=== PATIENT | female | born 1975 | race Caucasian/White ===

== ENCOUNTER 2017-03-07 20:29 | Emergency (ER) | payer BC, OTHER ==
[~2017-03-07] VITALS: Ht 160 cm; Wt 75.0 kg
[2017-03-07] MEDS ORDERED: NS 1,000 ML IV ONE (21:00)
[2017-03-07] MEDS ORDERED: ONDANSETRON 4MG/2ML VIAL (J2405) IV ONE (21:00)
[2017-03-07] MEDS: MORPHINE 4 MG/ML 1ML SYRINGE IV PRN ×2 (21:17→22:53)
[2017-03-07 21:21] LABS: BASO % 0.6 % (0.0-1.0); EOS # 0.1 K/mm3 (0.0-0.50); EOS % 0.8 % (0.0-3.0); LARGE UNSTAINED CELL # 0.1 K/mm3 (0.0-0.4); LARGE UNSTAINED CELL % 1.4 % (0.0-4.0); LYMPH % 21.5 % (24.0-44.0); MEAN CORPUSCULAR HEMOGLOBIN 29.1 pg (27.0-33.0); MEAN CORPUSCULAR HGB CONC 33.5 g/dl (32.0-36.5); MEAN CORPUSCULAR VOLUME 86.9 fl (80.0-96.0); MONO # 0.5 K/mm3 (0.0-0.8); MONO % 5.3 % (0.0-5.0); NEUTROPHILS # 6.3 K/mm3 (1.8-7.7); NEUTROPHILS % 70.4 % (36.0-66.0); PLATELET COUNT, AUTOMATED 242 k/mm3 (150-450); RED CELL DISTRIBUTION WIDTH 12.2 % (11.5-14.5); WHITE BLOOD COUNT 8.9 K/mm3 (4.0-10.0)
[2017-03-07 21:48] LABS: ALBUMIN 4.2 GM/DL (3.2-5.2); ALBUMIN/GLOBULIN RATIO 1.05 (1.00-1.93); ALKALINE PHOSPHATASE 94 U/L (45-117); ALT/SGPT 34 U/L (12-78); ANION GAP 10 MEQ/L (8-16); AST/SGOT 16 U/L (15-37); BILIRUBIN,DIRECT < 0.1 MG/DL (0.0-0.2); BILIRUBIN,TOTAL 0.4 MG/DL (0.2-1.0); BLOOD UREA NITROGEN 23 MG/DL (7-18); CALCIUM LEVEL 9.1 MG/DL (8.5-10.1); CARBON DIOXIDE LEVEL 26 MEQ/L (21-32); CHLORIDE LEVEL 106 MEQ/L (98-107); CREATININE FOR GFR 0.75 MG/DL (0.55-1.02); GLOMERULAR FILTRATION RATE > 60.0 (>58); GLUCOSE, FASTING 79 MG/DL (70-105); POTASSIUM SERUM 3.8 MEQ/L (3.5-5.1); SODIUM LEVEL 142 MEQ/L (136-145); TOTAL PROTEIN 8.2 GM/DL (6.4-8.2)
[2017-03-08] MEDS ORDERED: ISOVUE-370 76% 100ML VIAL (Q9967) As Ordered ONE (00:28)
--- NOTE | 2017-03-08 01:30 | REPUSA ---
CLINICAL HISTORY: Left flank pain. TECHNIQUE: Multiple axial, sagittal and coronal CT images were obtained through the abdomen and pelvi s after administration of intravenous contrast material. COMMENTS: Mild diffuse thickening of the wall of the bladder. Mild hepatomegaly with fat infiltration. There is no intra or extrahepatic biliary ductal dilatation. The spleen is normal. The gallbladder is within normal limits. The pancreas is of normal contour and attenuation characteristics. There is no evidence of adrenal mass. Both kidneys demonstrate prompt and equal nephrograms. The kidneys are normal in size, shape and conf iguration. There is no evidence of renal or ureteral mass. No renal or ureteral calculi are identifie d. There is no hydroureter or hydronephrosis. No evidence for appendicitis. There is no bowel wall thickening. No evidence for small or large chelsie l obstruction. There is no evidence of abdominal ascites or lymphadenopathy. There is no evidence of intrinsic or extrinsic bladder mass. There is no pelvic ascites or lymphadeno liv[place]. Images of the lung bases show no evidence of pleural or parenchymal mass. There are no pleural effusi ons. The bony structures are free of lytic or blastic lesions. Multilevel degenerative changes are seen in volving the thoracolumbar spine. Scattered calcifications are seen involving the aorta and major bran ches compatible with atherosclerosis. IMPRESSION: Mild diffuse thickening of the wall of the bladder. Mild hepatomegaly with fatty liver infiltration. Prior hysterectomy. Thank you for your kind referral of this patient.
[2017-03-08] MEDS ORDERED: ONDANSETRON 4MG/2ML VIAL (J2405) IV ONE (02:00)
[2017-03-08 02:01] VITALS: BP 97/49
[2017-03-08] MEDS ORDERED: ZOFR4TAB3 PO (02:02)
== END 2017-03-08 02:10 | disposition home or self-care (01) ==
LOC: M ED 20:29
DX: E86.0 Dehydration (principal)
CPT/HCPCS: 74177; 80048; 80076; 81001; 83690; 85025; 87040; 87086; 96361; 96374; 96375; 96376; 99284; J2405; Q9967

== ENCOUNTER 2017-05-24 16:19 | Emergency (ER) | payer BC ==
[~2017-05-24] VITALS: Ht 160 cm; Wt 75.0 kg
[~2017-05-24 16:19] MED LIST: ZOFR4TAB3 PO
[2017-05-24] MEDS ORDERED: ACETAMINOPHEN 325 MG TAB PO ONE (18:30)
[2017-05-24] MEDS ORDERED: IBUPROFEN 600 MG TAB PO ONE (18:30)
[2017-05-24] MEDS ORDERED: ZITHTAB PO (19:15)
[2017-05-24 19:36] VITALS: BP 120/62
--- NOTE | 2017-05-24 19:39 | REP ---
REASON: Cough and pyrexia. COMPARISON: 03/12/2016 FINDINGS: The superior mediastinal structures are midline. The cardiac silhouette is unremarkable in size, shape, and position. The diaphragmatic surfaces of the lungs are regular, and the costophrenic angles are clear. The pulmonary angulo are clear. The imaged osseous structures are intact. IMPRESSION: There is no acute cardiopulmonary disease. Signed by Simone Dutta DO 05/24/2017 08:06 P
== END 2017-05-24 19:37 | disposition home or self-care (01) ==
LOC: M ED 16:19
DX: J06.9 Acute upper respiratory infection, unspecified (principal)

== ENCOUNTER 2017-10-07 10:34 | Emergency (ER) | payer BC ==
[2017-10-07] MEDS: PANTOPRAZOLE 40MG INJ (PROTONIX) (C9113) IV (12:01)
[2017-10-07] MEDS: METOCLOPRAMIDE INJ 10MG/2ML VIAL (J2765) IV (12:01)
[2017-10-07] MEDS: NS 1,000 ML IV (12:02)
[2017-10-07 12:14] LABS: BASO % 0.1 % (0.0-1.0); EOS % 0.1 % (0.0-3.0); HEMATOCRIT 46.7 % (36.0-47.0); HEMOGLOBIN 15.4 g/dl (12.0-15.5); IMMATURE GRANULOCYTE % 0.1 % (0-3.0); LYMPH # 0.8 10^3/uL (1.5-4.5); LYMPH % 9.6 % (24.0-44.0); MEAN CORPUSCULAR HEMOGLOBIN 28.7 pg (27.0-33.0); MONO # 0.6 10^3/uL (0.0-0.8); MONO % 7.5 % (0.0-5.0); NEUTROPHILS # 6.8 10^3/uL (1.8-7.7); NEUTROPHILS % 82.6 % (36.0-66.0); PLATELET COUNT, AUTOMATED 222 10^3/uL (150-450); RED BLOOD COUNT 5.37 10^6/uL (4.00-5.40); RED CELL DISTRIBUTION WIDTH 12.4 % (11.5-14.5); WHITE BLOOD COUNT 8.2 10^3/uL (4.0-10.0)
[2017-10-07 12:28] LABS: KETONE, URINE AUTO RFX NEGATIVE (NEGATIVE); LEUKOCYTE ESTERASE UR AUTO RFX NEGATIVE (NEGATIVE); MUCUS, URINE RFX SMALL (NEGATIVE); NITRITE, URINE AUTO RFX NEGATIVE (NEGATIVE); RBC, URINE AUTO RFX 2 /HPF (0-3); SPECIFIC GRAVITY UR AUTO RFX 1.027 (1.002-1.035); SQUAM EPITHELIAL CELL UR AURFX 3 /HPF (0-6); WBC, URINE AUTO RFX 1 /HPF (0-3)
[2017-10-07 12:33] LABS: CONTROL LINE HCG INT CTR LINE PRESENT; HCG, SERUM QUALITATIVE NEGATIVE (NEGATIVE)
[2017-10-07] MEDS: MORPHINE 4 MG/ML 1ML VIAL/SYRINGE (J2270) IV (12:36)
[2017-10-07] MEDS ORDERED: ISOVUE-370 76% 100ML VIAL (Q9967) As Ordered (12:37)
[2017-10-07 12:40] LABS: ALBUMIN 3.9 GM/DL (3.2-5.2); ALBUMIN/GLOBULIN RATIO 0.95 (1.00-1.93); ALKALINE PHOSPHATASE 99 U/L (45-117); ALT/SGPT 32 U/L (12-78); AMYLASE 60 U/L (25-115); ANION GAP 4 MEQ/L (8-16); AST/SGOT 20 U/L (7-37); BILIRUBIN,DIRECT < 0.1 MG/DL (0.0-0.2); BILIRUBIN,TOTAL 0.3 MG/DL (0.2-1.0); BLOOD UREA NITROGEN 14 MG/DL (7-18); CALCIUM LEVEL 8.9 MG/DL (8.5-10.1); CARBON DIOXIDE LEVEL 28 MEQ/L (21-32); CHLORIDE LEVEL 107 MEQ/L (98-107); CREATININE FOR GFR 0.79 MG/DL (0.55-1.30); GLOMERULAR FILTRATION RATE > 60.0 (>58); GLUCOSE, FASTING 106 MG/DL (70-100); LIPASE 141 U/L (73-393); POTASSIUM SERUM 4.1 MEQ/L (3.5-5.1); SODIUM LEVEL 139 MEQ/L (136-145)
[2017-10-07] MEDS: SUCRALFATE SUSP 1GM/10ML UD PO (13:30)
== END 2017-10-07 13:33 | disposition home or self-care (01) ==
LOC: M ED 10:34
DX: K29.70 Gastritis, unspecified, without bleeding (principal); K21.9 Gastro-esophageal reflux disease without esophagitis; Z87.42 Personal history of other diseases of the female genital tract; Z86.69 Personal history of other diseases of the nervous system and sense organs; Z88.8 Allergy status to other drugs, medicaments and biological substances
CPT/HCPCS: C9113

== ENCOUNTER → 2017-11-13 | Outpatient (CLI) | payer BC | LOC: M RAD 09:33 | DX: S96.011A Strain of muscle and tendon of long flexor muscle of toe at ankle and foot level, right foot, initial encounter (principal); M79.89 Other specified soft tissue disorders; X58.XXXA Exposure to other specified factors, initial encounter; Y92.9 Unspecified place or not applicable | CPT/HCPCS: 73610 ==

== ENCOUNTER 2018-05-02 19:01 | Emergency (ER) | payer BC ==
[2018-05-02 19:30] LABS: KETONE, URINE AUTO RFX NEGATIVE (NEGATIVE); LEUKOCYTE ESTERASE UR AUTO RFX NEGATIVE (NEGATIVE); NITRITE, URINE AUTO RFX NEGATIVE (NEGATIVE); RBC, URINE AUTO RFX 0 /HPF (0-3); SPECIFIC GRAVITY UR AUTO RFX 1.004 (1.002-1.035); SQUAM EPITHELIAL CELL UR AURFX 0 /HPF (0-6); WBC, URINE AUTO RFX 0 /HPF (0-3)
[2018-05-02] MEDS: GI COCKTAIL 50ML BTL(HYOSCYAMINE/MAALOX/LIDOCAINE VISCOUS)(1:3:1) PO (21:00)
[2018-05-02] MEDS: NS 1,000 ML IV (21:17)
[2018-05-02] MEDS: ONDANSETRON 4MG/2ML VIAL (J2405) IV (21:17)
[2018-05-02] MEDS: KETOROLAC 30 MG/ML VIAL (J1885) IV (21:17)
[2018-05-02 21:29] LABS: HEMATOCRIT 43.6 % (36.0-47.0); HEMOGLOBIN 14.5 g/dl (12.0-15.5); MEAN CORPUSCULAR HGB CONC 33.3 g/dl (32.0-36.5); MEAN CORPUSCULAR VOLUME 87.2 fl (80.0-96.0); PLATELET COUNT, AUTOMATED 237 10^3/uL (150-450); RED CELL DISTRIBUTION WIDTH 12.4 % (11.5-14.5); WHITE BLOOD COUNT 9.1 10^3/uL (4.0-10.0)
[2018-05-02 21:55] LABS: ALBUMIN 4.2 GM/DL (3.2-5.2); ALBUMIN/GLOBULIN RATIO 1.05 (1.00-1.93); ALKALINE PHOSPHATASE 116 U/L (45-117); ALT/SGPT 43 U/L (12-78); ANION GAP 8 MEQ/L (8-16); AST/SGOT 24 U/L (7-37); BILIRUBIN,TOTAL 0.2 MG/DL (0.2-1.0); BLOOD UREA NITROGEN 11 MG/DL (7-18); CALCIUM LEVEL 9.2 MG/DL (8.5-10.1); CARBON DIOXIDE LEVEL 29 MEQ/L (21-32); CHLORIDE LEVEL 103 MEQ/L (98-107); CPK CREATINE PHOSPHOKINASE 171 U/L (26-192); CREATININE FOR GFR 0.74 MG/DL (0.55-1.30); GLOMERULAR FILTRATION RATE > 60.0 (>58); GLUCOSE, FASTING 85 MG/DL (70-100); LIPASE 197 U/L (73-393); MB/CK RELATIVE INDEX 1.11 (< OR =4); POTASSIUM SERUM 3.3 MEQ/L (3.5-5.1); SODIUM LEVEL 140 MEQ/L (136-145); TOTAL PROTEIN 8.2 GM/DL (6.4-8.2); TROPONIN I < 0.02 NG/ML (< 0.10)
[2018-05-02] MEDS: ACETAMINOPHEN 325 MG TAB PO (22:52)
[2018-05-02] MEDS: traMADol 50 MG TAB PO (22:52)
[2018-05-03] MEDS: MORPHINE 4 MG/ML 1ML VIAL/SYRINGE (J2270) IV (00:03)
[2018-05-03] MEDS: ONDANSETRON 4MG/2ML VIAL (J2405) IV (00:40)
[2018-05-03] MEDS ORDERED: ISOVUE-370 76% 100ML VIAL (Q9967) As Ordered (00:41)
== END 2018-05-03 01:56 | disposition home or self-care (01) ==
LOC: M ED 05-03 01:56
DX: K29.70 Gastritis, unspecified, without bleeding (principal); K21.0 Gastro-esophageal reflux disease with esophagitis; I45.19 Other right bundle-branch block; K76.0 Fatty (change of) liver, not elsewhere classified; R51 Headache; J45.909 Unspecified asthma, uncomplicated; Z82.49 Family history of ischemic heart disease and other diseases of the circulatory system; Z88.8 Allergy status to other drugs, medicaments and biological substances
CPT/HCPCS: J2270

== ENCOUNTER 2018-06-27 07:01 | Emergency (ER) | payer BC ==
[~2018-06-27] VITALS: Ht 160 cm; Wt 80.0 kg
[~2018-06-27 07:01] MED LIST changes: +CARA1TAB6 PO; +LIDO1SOL7 PO; +PROT1TAB2 PO; +ZITHTAB PO; +ZOFR4TAB14 PO; -ZOFR4TAB3 PO
[2018-06-27] MEDS ORDERED: DICY10CA13 PO (07:08)
[2018-06-27] MEDS ORDERED: MORPHINE 4 MG/ML 1ML VIAL/SYRINGE (J2270) IV ONE (07:30)
[2018-06-27] MEDS ORDERED: NS 1,000 ML IV ONE (07:30)
[2018-06-27] MEDS ORDERED: ONDANSETRON 4MG/2ML VIAL (J2405) IV ONE (07:30)
[2018-06-27 08:03] LABS: BASO % 0.5 % (0.0-1.0); EOS # 0.2 10^3/uL (0.0-0.50); EOS % 1.9 % (0.0-3.0); HEMATOCRIT 42.7 % (36.0-47.0); HEMOGLOBIN 14.2 g/dl (12.0-15.5); LYMPH % 24.8 % (24.0-44.0); MEAN CORPUSCULAR HEMOGLOBIN 29.1 pg (27.0-33.0); MEAN CORPUSCULAR HGB CONC 33.3 g/dl (32.0-36.5); MEAN CORPUSCULAR VOLUME 87.5 fl (80.0-96.0); MONO # 0.8 10^3/uL (0.0-0.8); MONO % 10.6 % (0.0-5.0); NEUTROPHILS # 4.9 10^3/uL (1.8-7.7); NEUTROPHILS % 62.1 % (36.0-66.0); PLATELET COUNT, AUTOMATED 228 10^3/uL (150-450); RED BLOOD COUNT 4.88 10^6/uL (4.00-5.40); WHITE BLOOD COUNT 7.9 10^3/uL (4.0-10.0)
[2018-06-27 09:11] LABS: ALBUMIN 3.8 GM/DL (3.2-5.2); ALT/SGPT 44 U/L (12-78); AMYLASE 60 U/L (25-115); BILIRUBIN,DIRECT < 0.1 MG/DL (0.0-0.2); BILIRUBIN,TOTAL 0.3 MG/DL (0.2-1.0); BLOOD UREA NITROGEN 19 MG/DL (7-18); CARBON DIOXIDE LEVEL 29 MEQ/L (21-32); CHLORIDE LEVEL 105 MEQ/L (98-107); CREATININE FOR GFR 0.77 MG/DL (0.55-1.30); GLOMERULAR FILTRATION RATE > 60.0 (>58); GLUCOSE, FASTING 112 MG/DL (70-100); LIPASE 194 U/L (73-393); POTASSIUM SERUM 3.9 MEQ/L (3.5-5.1); SODIUM LEVEL 139 MEQ/L (136-145); TOTAL PROTEIN 7.5 GM/DL (6.4-8.2)
[2018-06-27] MEDS ORDERED: ISOVUE-370 76% 100ML VIAL (Q9967) As Ordered ONE (09:42)
--- NOTE | 2018-06-27 10:12 | REP ---
CT ABDOMEN AND PELVIS WITH IV BUT WITHOUT ORAL CONTRAST: HISTORY: Nausea. Sudden onset. Abdomen pain. COMPARISON STUDY: May 03, 2018. CT CONTRAST DOSE: 100 mL of intravenous Isovue [address] FINDINGS: Preliminary digital cyber security instructor radiograph demonstrates an unremarkable bowel gas pattern. Lung bases are clear. The liver shows mild fatty infiltration as before. No overall enlargement is seen. No focal liver lesion. No adrenal lesion is observed. No pancreatic abnormality is seen to. The gallbladder is unremarkable. The kidneys enhance symmetrically and are morphologically intact. Spleen is homogeneous. Normal in size. Small and large intestinal bowel loops are normal in the abdomen and pelvis. The appendix is surgically absent. Urinary bladder is intact. The patient is status post hysterectomy. No adnexal pathology is seen. No abdominal wall defect is observed. Bone window settings show no bony destructive lesion. IMPRESSION: Fatty infiltration of the liver as noted previously. Status post hysterectomy and appendectomy. No acute intra-abdominal or pelvic abnormality. Electronically Signed by Alex Zapata MD 06/27/2018 10:59 A
[2018-06-27] MEDS ORDERED: ZOFR4TAB14 PO (10:32)
[2018-06-27] MEDS ORDERED: NORCOTAB PO (10:32)
[2018-06-27 10:34] VITALS: BP 99/55
[2018-07-14] MEDS ORDERED: IMIT50TA PO (08:24)
[2018-07-14] MEDS ORDERED: VENTAER INH (08:24)
== END 2018-06-27 10:46 | disposition home or self-care (01) ==
LOC: M ED 07:01
DX: R10.12 Left upper quadrant pain (principal); K21.9 Gastro-esophageal reflux disease without esophagitis; J45.909 Unspecified asthma, uncomplicated; F41.9 Anxiety disorder, unspecified
CPT/HCPCS: 36415; 74177; 80048; 80076; 81001; 82150; 83690; 85025; 96361; 96374; 96375; 99284; J2270; J2405; Q9967

== ENCOUNTER 2018-07-28 09:04 | Day surgery (SDC) | payer BC ==
[~2018-07-28] VITALS: Ht 160 cm; Wt 79.4 kg
[~2018-07-28 09:04] MED LIST changes: +DICY10CA13 PO; +IMIT50TA PO; +NORCOTAB PO; +NS 1,000 ML IV ONE; +VENTAER INH
--- NOTE | 2018-07-28 10:11 | ROOR ---
Patient Name: Jodie Octavio Procedure Date: 07/28/2018 9:56 AM Date of : 1975 Age: 43 Room: [facility] Gender: Female Note Status: Finalized Procedure: Upper GI endoscopy Indications: Abdominal pain in the right upper quadrant, Abdominal pain in the left upper quadrant Providers: Jeet CASTILLO MD Referring MD: Temitope Ontiveros NP Requesting Provider: Medicines: Monitored Anesthesia Care Complications: No immediate complications. Procedure: Pre-Anesthesia Assessment: - The heart rate, respiratory rate, oxygen saturations, blood pressure, adequacy of pulmonary ventilation, and response to care were monitored throughout the procedure. The Endoscope was introduced through the mouth, and advanced to the second part of duodenum. The upper GI endoscopy was accomplished without difficulty. The patient tolerated the procedure well. Findings: The esophagus was normal. The stomach was normal. The examined duodenum was normal. Impression: - Normal esophagus. - Normal stomach. - Normal examined duodenum. - No specimens collected. Recommendation: - Continue present medications. Jeet Castillo MD Jeet CASTILLO MD 07/28/2018 10:11:12 AM This report has been signed electronically. Number of Addenda: 0 Note Initiated On: 07/28/2018 9:56 AM Estimated Blood Loss: Estimated blood loss: none.
--- NOTE | 2018-07-28 10:24 | ROOR ---
Patient Name: Jodie Cunningham Procedure Date: 07/28/2018 9:57 AM Date of : 1975 Age: 43 Room: [facility] Gender: Female Note Status: Finalized Procedure: Colonoscopy Indications: Abdominal pain, Constipation Providers: Jeet ALEXIS MD Referring MD: Temitope Ontiveros NP Requesting Provider: Medicines: Monitored Anesthesia Care Complications: No immediate complications. Procedure: Pre-Anesthesia Assessment: - The heart rate, respiratory rate, oxygen saturations, blood pressure, adequacy of pulmonary ventilation, and response to care were monitored throughout the procedure. The Colonoscope was introduced through the anus and advanced to 10 cm into the ileum. The colonoscopy was performed without difficulty. The patient tolerated the procedure well. The quality of the bowel preparation was adequate. Findings: The perianal and digital rectal examinations were normal. Internal hemorrhoids were found during retroflexion. The hemorrhoids were medium-sized. The entire examined colon appeared normal on direct and retroflexion views. The terminal ileum appeared normal. Retroflexion in the right colon was performed. Impression: - Internal hemorrhoids. - The entire colon is normal on direct and retroflexion views. - The examined portion of the ileum was normal. - No specimens collected. Recommendation: - Continue present medications. Jeet Alexis MD Jeet ALEXIS MD 07/28/2018 10:24:00 AM This report has been signed electronically. Number of Addenda: 0 Note Initiated On: 07/28/2018 9:57 AM Estimated Blood Loss: Estimated blood loss: none.
[2018-07-28 11:07] VITALS: BP 119/81
== END 2018-07-28 11:07 | disposition home or self-care (01) ==
LOC: M OPP 09:04
PROVIDERS: ATTEND Internal Medicine Gastroenterology
DX: K64.8 Other hemorrhoids (principal); R10.11 Right upper quadrant pain; K59.00 Constipation, unspecified; R10.12 Left upper quadrant pain

== ENCOUNTER 2018-08-08 13:45 | Inpatient (IN) | payer BC ==
[~2018-08-08] VITALS: Ht 160 cm; Wt 80.9 kg
[~2018-08-08 13:45] MED LIST changes: -NS 1,000 ML IV ONE
[2018-08-08 14:55] LABS: ALBUMIN 4.3 GM/DL (3.2-5.2); ALT/SGPT 46 U/L (12-78); BILIRUBIN,DIRECT 0.1 MG/DL (0.0-0.2); BILIRUBIN,TOTAL 0.4 MG/DL (0.2-1.0); BLOOD UREA NITROGEN 12 MG/DL (7-18); CARBON DIOXIDE LEVEL 27 MEQ/L (21-32); CHLORIDE LEVEL 107 MEQ/L (98-107); CREATININE FOR GFR 0.77 MG/DL (0.55-1.30); GLOMERULAR FILTRATION RATE > 60.0 (>58); GLUCOSE, FASTING 85 MG/DL (70-100); LIPASE 112 U/L (73-393); POTASSIUM SERUM 3.9 MEQ/L (3.5-5.1); SODIUM LEVEL 141 MEQ/L (136-145); TOTAL PROTEIN 7.4 GM/DL (6.4-8.2)
[2018-08-08] MEDS ORDERED: NS 1,000 ML IV ONE (16:00)
[2018-08-08] MEDS ORDERED: MORPHINE 4 MG/ML 1ML VIAL/SYRINGE (J2270) IV ONE (16:00)
[2018-08-08] MEDS ORDERED: ONDANSETRON 4MG/2ML VIAL (J2405) IV ONE (16:00)
[2018-08-08 16:36] LABS: BASO % 0.4 % (0.0-1.0); EOS # 0.1 10^3/uL (0.0-0.50); EOS % 1.6 % (0.0-3.0); HEMATOCRIT 43.3 % (36.0-47.0); HEMOGLOBIN 14.2 g/dl (12.0-15.5); LYMPH # 2.2 10^3/uL (1.5-4.5); MEAN CORPUSCULAR HEMOGLOBIN 28.7 pg (27.0-33.0); MEAN CORPUSCULAR HGB CONC 32.8 g/dl (32.0-36.5); MEAN CORPUSCULAR VOLUME 87.7 fl (80.0-96.0); MONO # 0.7 10^3/uL (0.0-0.8); MONO % 9.9 % (0.0-5.0); NEUTROPHILS % 56.8 % (36.0-66.0); PLATELET COUNT, AUTOMATED 218 10^3/uL (150-450); RED BLOOD COUNT 4.94 10^6/uL (4.00-5.40); WHITE BLOOD COUNT 7.1 10^3/uL (4.0-10.0)
[2018-08-08 16:56] LABS: ALT/SGPT 44 U/L (12-78); BILIRUBIN,TOTAL 0.4 MG/DL (0.2-1.0); BLOOD UREA NITROGEN 11 MG/DL (7-18); CALCIUM LEVEL 8.7 MG/DL (8.5-10.1); CARBON DIOXIDE LEVEL 26 MEQ/L (21-32); CHLORIDE LEVEL 107 MEQ/L (98-107); CREATININE FOR GFR 0.76 MG/DL (0.55-1.30); GLOMERULAR FILTRATION RATE > 60.0 (>58); GLUCOSE, FASTING 75 MG/DL (70-100); LIPASE 111 U/L (73-393); POTASSIUM SERUM 3.7 MEQ/L (3.5-5.1); SODIUM LEVEL 142 MEQ/L (136-145); TOTAL PROTEIN 7.2 GM/DL (6.4-8.2)
[2018-08-08] MEDS ORDERED: fentaNYL 100 MCG/2 ML INJECTION (J3010) IV PRN ×2 (18:30)
[2018-08-08] MEDS ORDERED: MORPHINE 4 MG/ML 1ML VIAL/SYRINGE (J2270) IV PRN (18:45)
[2018-08-08] MEDS ORDERED: ONDANSETRON 4MG/2ML VIAL (J2405) IV PRN (18:45)
[2018-08-08] MEDS ORDERED: KETOROLAC 30 MG/ML VIAL (J1885) IV ONE (18:45)
[2018-08-08] MEDS ORDERED: NORCO, ANEXSIA 5/325MG TABLET (HYDROcodone/ACETAMINOPHEN) PO PRN (18:45)
[2018-08-08] MEDS ORDERED: PROA1AER2 INH (18:57)
[2018-08-08] MEDS ORDERED: MONT10TA2 PO (18:57)
[2018-08-08] MEDS ORDERED: PROT1TAB2 PO (18:57)
[2018-08-08] MEDS ORDERED: BUPR150T3 PO (18:57)
--- NOTE | 2018-08-08 18:57 | HPEPDOC ---
General Surgery H&P Date of Admission Aug 08, 2018 Attending Physician: ROSE OSBORN MD History and Physical CHIEF COMPLAINT: abdominal pain HISTORY OF PRESENT ILLNESS: Patient is a 43-year-old female who presented herself to the emergency department today roughly at about 12 noon complaints of epigastric and left upper quadrant and mild right upper quadrant pain and discomfort that started about 5 AM this morning. Patient has been having this on and off episodes of epigastric and left upper quadrant discomfort for which she has been thoroughly worked up. She was seen by Dr. Castillo for which he did an upper endoscopy and colonoscopy 2 weeks ago which were normal. She had normal CT likewise gallbladder ultrasound. She had a HIDA scan done that shows a low ejection fraction of 14%. I saw her last week in my clinic and she was scheduled to have cholecystectomy performed. Patient reports that roughly about Wednesday she started having some vague epigastric abdominal discomfort and she was feeling fine last night. This morning when she woke up she was feeling fine but after drinking a glass of water started having this crampy twisting the pain and discomfort followed by multiple episodes of vomiting with persistent nausea prompting her to consult in the emergency room. I saw her last week in my clinic for intermittent episodes of similar complaints. She has been thoroughly worked up by her creative art director. She had a CT scan of the abdomen and pelvis done during one of her ER visits in June. She just had a normal upper endoscopy. She had a HIDA scan done as an outpatient at [facility] showing biliary dyskinesia with an ejection fraction of 14%. Her creative art director is recommended for her to undergo cholecystectomy. She was scheduled to have this done next week. ALLERGIES: Please see below. HOME MEDICATIONS: Please see below. PAST MEDICAL HISTORY: 1.Asthma 2. Gastroesophageal reflux disease 3. Thyroid disease 4. High cholesterol 5. Anxiety PAST SURGICAL HISTORY: 1. Hysterectomy and BSO 2. Appendectomy 3. Tubal ligation PERSONAL/SOCIAL HISTORY: Patient denies smoking, vocationally consumes alcohol. She denies recreational drug use REVIEW OF SYSTEMS: GENERAL: Denies chills, fatigue, fever, weight gain and weight loss. HEENT: Denies blurred vision and double vision. Denies ear symptoms. Denies hoarseness. NECK: Denies any neck pain. CARDIOVASCULAR: Denies chest pain and palpitations. MUSCULOSKELETAL: Denies arthralgias, back pain and thrombophlebitis. SKIN: Denies rash. NEUROLOGIC: Denies headache, stroke and transient ischemic attack. PSYCHIATRIC: Denies anxiety and depression. ENDOCRINE: Denies thyroid disease. HEMATOLOGY/ONCOLOGY: Denies any bleeding or clotting disorder. HEART: Denies any chest pains, palpitations, paroxysmal dyspnea, orthopnea. PULMONARY: Denies chronic cough, dyspnea and wheezing. GASTROINTESTINAL: Denies rectal bleeding, family history of colon cancer, constipation, diarrhea, dysphagia, heartburn and jaundice. GENITOURINARY: Denies dysuria, frequency, hematuria and nocturia. ENDOCRINE: Denies polydipsia, polyphagia, polyuria, heat or cold intolerance. INFECTIOUS: Denies any recent upper respiratory tract infection, UTI, need for use of antibiotics. NUTRITION: Reports good appetite. PHYSICAL EXAMINATION: VITAL SIGNS: Please see below. GENERAL APPEARANCE: Patient seen at bedside, appears uncomfortable, very an xious, crying. Awake, alert, oriented. Her hands are pressed on her left upper quadrant area HEENT: Normocephalic, atraumatic. [place] palpebral conjunctivae. Anicteric sclerae. Lips moist. CHEST: No chest wall abnormalities. Normal respiratory motion/effort. NECK: Supple. No thyromegaly. No lymphadenopathies. LUNGS: Lung sounds are clear to auscultation bilaterally. No wheezing appreciated. HEART: No chest wall abnormalities. Heart rate and rhythm are regular with no murmurs. ABDOMEN: Abdomen is obese, soft, mildly distended, rounded. She has mild tenderness on the epigastric area, mild tenderness on the right upper quadrant area. She has somewhat mild to moderate tenderness over the left upper quadrant area and she seems to be guarding over that area though palpating around the a lady did not make her discomfort worse. She appears to be mildly distended most prominent on the upper abdomen. SKIN: Warm, moist. EXTREMITIES: Extremities have no deformities. No edema identified. NEUROLOGICAL: . ANCILLARIES: . LABORATORY DATA: Please see below. MICROBIOLOGY: Please see below. IMAGING: Previous imaging studies done including a CT scan of the abdomen and pelvis done in 10/07/2017, 04/02/2018 and 06/27/2018. All are ER visits of similar complaints as this episode., right upper quadrant ultrasound on 09/16/2015 which is normal. She had an outpatient endoscopy and colonoscopy on 07/28/2018 which is normal. She had an outpatient HIDA scan and apparently an outpatient gallblad joao ultrasound also done there at [facility]. This shows a low gallbladder ejection fraction of 14%. IMPRESSION AND PLAN: Abdominal pain: Epigastric pain, right upper quadrant, left upper quadrant abdominal pain. Biliary dyskinesia Patient has had similar symptoms before and has been thoroughly worked up. She was seen in the emergency room within normal CT in June. She has followed up with a creative art director who had worked her up for early with negative upper GI endoscopy. She had a colonoscopy years ago. She has a normal ultrasound of the gallbladder. She had a HIDA scan with ejection fraction that shows a low ejection fraction of 14% consistent with biliary dyskinesia. I have evaluated her in the clinic and she was actually scheduled to have cholecystectomy perf ormed as an outpatient. These were sent I saw her during the attack and she is quite uncomfortable requiring a couple doses of IV morphine with only mild relief of symptoms. Patient's does noticeably distressed and uncomfortable though abdomen reveals only mildly distended. She does not have much tenderness though she does have mild discomfort in the right upper quadrant area and more discomfort in the left upper quadrant area. At this point I'll think any other studies would benefit her. She has previously been consult on having cholecystectomy performed we will admit her and schedule her for cholecystectomy. The hospital.. Vital Signs Vital Signs Date Time Temp Pulse Resp B/P (MAP) Pulse Ox O2 Delivery O2 Flow Rate FiO2 08/08/18 18:43 20 08/08/18 18:39 97.5 91 116/59 (78) 95 Room Air Laboratory Data Labs 24H Laboratory Tests 2 08/08/18 14:09: Anion Gap 7L, Glomerular Filtration Rate > 60.0, Calcium Level 9.0, Aspartate Amino Transf (AST/SGOT) 34, Alanine Aminotransferase (ALT/SGPT) 46, Alkaline Phosphatase 90, Total Bilirubin 0.4, Direct Bilirubin 0.1, Total Protein 7.4, Albumin 4.3, Albumin/Globulin Ratio 1.39, Lipase 112 08/08/18 16:21: Anion Gap 9, Glomerular Filtration Rate > 60.0, Calcium Level 8.7, Aspartate Amino Transf (AST/SGOT) 34, Alanine Aminotransferase (ALT/SGPT) 44, Alkaline Phosphatase 86, Total Bilirubin 0.4, Total Protein 7.2, Albumin 4.0, Albumin/Globulin Ratio 1.25, Lipase 111, Immature Granulocyte % (Auto) 0.3, Wh ite Blood Count 7.1, Red Blood Count 4.94, Hemoglobin 14.2, Hematocrit 43.3, Mean Corpuscular Volume 87.7, Mean Corpuscular Hemoglobin 28.7, Mean Corpuscular Hemoglobin Concent 32.8, Red Cell Distribution Width 12.3, Platelet Count 218, Neutrophils (%) (Auto) 56.8, Lymphocytes (%) (Auto) 31.0, Monocytes (%) (Auto) 9.9H, Eosinophils (%) (Auto) 1.6, Basophils (%) (Auto) 0.4, Neutrophils # (Auto) 4.0, Lymphocytes # (Auto) 2.2, Monocytes # (Auto) 0.7, Eosinophils # (Auto) 0.1, Basophils # (Auto) 0.0, Nucleated Red Blood Cells % (auto) 0.0, Blood Urea Nitrogen 11, Creatinine 0.76, Sodium Level 142, Potassium Level 3.7, Chloride Level 107, Carbon Dioxide Level 26 08/08/18 16:28: Urine Color YELLOW, Urine Appearance CLEAR, Urine pH 5.0, Urine Specific [place] 1.026, Urine Protein NEGATIVE, Urine Glucose (UA) NEGATIVE, Urine Ketones 1+H, Urine Blood NEGATIVE, Urine Nitrite NEGATIVE, Urine Bilirubin NEGATIVE, Urine Urobilinogen 0.2, Urine Leukocyte Esterase NEGATIVE, Urine WBC (Auto) 1, Urine RBC (Auto) 2, Urine Hyaline Casts (Auto) 0, Urine Bacteria (Auto) NEGATIVE, Urin e Squamous Epithelial Cells 1, Urine Mucus (Auto) SMALL, Urine Sperm (Auto) CBC/BMP Laboratory Tests 08/08/18 14:09 08/08/18 16:21 Red Blood Count 4.94, Mean Corpuscular Volume 87.7, Mean Corpuscular Hemoglobin 28.7, Mean Corpuscular Hemoglobin Concent 32.8, Red Cell Distribution Width 12.3, Neutrophils (%) (Auto) 56.8, Lymphocytes (%) (Auto) 31.0, Monocytes (%) (Auto) 9.9 H, Eosinophils (%) (Auto) 1.6, Basophils (%) (Auto) 0.4, Neutrophils # (Auto) 4.0, Lymphocytes # (Auto) 2.2, Monocytes # (Auto) 0.7, Eosinophils # (Auto) 0.1, Basophils # (Auto) 0.0, Calcium Level 8.7, Aspartate Amino Transf (AST/SGOT) 34, Alanine Aminotransferase (ALT/SGPT) 44, Alkaline Phosphatase 86, Total Bilirubin 0.4, Total Protein 7.2, Albumin 4.0 Home Medications Scheduled Bupropion Hcl (Bupropion HCl Xl) 150 Mg Tab, 150 MG PO DAILY, (Reported) Montelukast Sodium (Montelukast Sodium) 10 Mg Tab, 10 MG PO QHS, (Reported) Pantoprazole Sodium Sesquihydr (Protonix) 40 Mg Tab, 40 MG PO DAILY, (Reported) Scheduled PRN (Proair Respiclick) 108 Mcg/Act Aer, 2 PUFF INH Q4HP PRN for shortness of breath, (Reported) Albuterol Sulfate (Ventolin Hfa) 108 Mcg/Act Aer, 108 MCG INH PRN PRN for SHORTNESS OF BREATH, (Reported) Dicyclomine HCl (Dicyclomine HCl) 10 Mg Cap, 10 MG PO Q6H PRN for CRAMPS, (Reported) Sumatriptan Succinate (Imitrex) 50 Mg Tab, 25 MG PO PRN PRN for MIGRAINE, (Reported) Allergies Coded Allergies: Prednisone (Verified Allergy, Unknown, HIVES, 07/14/18) ROSE OSBORN MD Aug 08, 2018 18:57
[2018-08-08 21:00] VITALS: BP 118/55
[2018-08-08] MEDS: LR 1,000 ML IV SCH (21:45)
[2018-08-08] MEDS: SUCRALFATE 1 GM TAB PO SCH ×2 (21:54→22:22)
[2018-08-08] MEDS: SENOKOT S TAB PO SCH (22:02)
[2018-08-09] VITALS (7 sets, daily range): BP systolic 104–138; BP diastolic 52–76
[2018-08-09] MEDS: KETOROLAC 30 MG/ML VIAL (J1885) IV PRN ×2 (06:16→12:35)
[2018-08-09] MEDS: LR 1,000 ML IV SCH ×2 (06:55→21:22)
[2018-08-09] MEDS: buPROPion **XL** TABLET 150MG (WELLBUTRIN XL) PO SCH (09:00)
[2018-08-09] MEDS ORDERED: PANTOPRAZOLE 40MG INJ (PROTONIX) (C9113) IV SCH (09:00)
[2018-08-09] MEDS: SENOKOT S TAB PO SCH ×2 (09:04→21:22)
--- NOTE | 2018-08-09 12:43 | IPNPDOC ---
Subjective General Date/Time Seen The patient was seen on 08/09/18 at 12:38. Subject Chief Complaint/History The patient is a 43-year-old female admitted with a reason for visit of Biliary Dyskinesia; Luq Abd Pain. Patient feeling moderately improved. She thinks the Toradol IVs working well for her. She was nauseated last night but feels better this morning. Likewise her abdominal distention is better this morning. Current Medications Current Medications Current Medications Acetaminophen/ Hydrocodone Bitart ([place], Anexsia 5/325) 1 tab Q4HP PRN PO MODERATE PAIN (PS 5-7); Start 08/08/18 at 18:45 Acetaminophen/ Hydrocodone Bitart ([place], Anexsia 5/325) 2 tab Q6HP PRN PO SEVERE PAIN (PS 8-10) Last administered on 08/08/18at 22:03; Start 08/08/18 at 18:45 Fentanyl Citrate (Sublimaze) 50 mcg Q30M PRN IV MODERATE/SEVERE PAIN (PS 5-10) Last administered on 08/08/18at 18:43; Start 08/08/18 at 18:30; Stop 08/08/18 at 21:57; Status DC Fentanyl Citrate (Sublimaze) 50 mcg Q30MP PRN IV MODERATE/SEVERE PAIN (PS 5- 10); Start 08/08/18 at 18:30; Status Cancel Home Med (Med Rec Complete!) ASDIRECTED XX ; Start 08/08/18 at 19:00; Stop 08/08/18 at 19:00; Status DC Ketorolac Tromethamine (ToRADol) 30 mg Q6HP PRN IV MILD/MODERATE PAIN (PS 1-7) Last administered on 08/09/18at 12:35; Start 08/08/18 at 18:45; Stop 08/13/18 at 18:44 Lactated Ringer's 1,000 ml @ 100 mls/hr Q10H IV Last administered on 08/09/18at 06:55; Start 08/08/18 at 18:44 Morphine Sulfate (Morphine Sulfate Inj) 4 mg Q2HP PRN IV SEVERE PAIN (PS 8-10) Last administered on 08/09/18at 00:23; Start 08/08/18 at 18:45 Ondansetron HCl (ZOFRAN INJection) 4 mg Q6HP PRN IV NAUSEA OR VOMITING; Start 08/08/18 at 18:45 Pantoprazole Sodium (Protonix) 40 mg DAILY IV Last administered on 08/09/18at 09:04; Start 08/09/18 at 09:00 Senna/Docusate Sodium (Senokot S) 1 tab BID PO Last administered on 08/09/18at 09:04; Start 08/08/18 at 21:00 Sucralfate (Carafate) 1 gm Q8H PO ; Start 08/08/18 at 22:00 Allergies Coded Allergies: Prednisone (Verified Allergy, Unknown, HIVES, 07/14/18) Objective Physical Examination Examination GENERAL APPEARANCE: Looks comfortable. SKIN: Warm and moist. HEENT: Normocephalic, atraumatic. [place] palpebral conjunctiva, anicteric sclerae. Lips and mucosa appear moist. NECK: Supple, no thyromegaly. No obvious jugular venous distention. LUNGS: Clear to auscultation bilaterally. No wheezing appreciated. HEART: No chest wall abnormalities. Regular rate and rhythm with no murmurs ap preciated. ABDOMEN: Abdomen is nondistended, soft, nontender on palpation. . EXTREMITIES: Extremities have no deformities. No edema identified. Vital Signs Vital Signs Date Time Temp Pulse Resp B/P (MAP) Pulse Ox O2 Delivery O2 Flow Rate FiO2 08/09/18 12:00 97.5 78 17 109/53 (71) 95 08/08/18 20:28 Room Air I&Os l I&O- Last 24 Hours up to 6 AM 08/09/18 06:00 Intake Total 360 ml Output Total 300 ml Balance 60 ml Laboratory Data Labs 24H Laboratory Tests 2 08/08/18 14:09: Anion Gap 7L, Glomerular Filtration Rate > 60.0, Calcium Level 9.0, Aspartate Amino Transf (AST/SGOT) 34, Alanine Aminotransferase (ALT/SGPT) 46, Alkaline Phosphatase 90, Total Bilirubin 0.4, Direct Bilirubin 0.1, Total Protein 7.4, Albumin 4.3, Albumin/Globulin Ratio 1.39, Lipase 112 08/08/18 16:21: Anion Gap 9, Glomerular Filtration Rate > 60.0, Calcium Level 8.7, Aspartate Amino Transf (AST/SGOT) 34, Alanine Aminotransferase (ALT/SGPT) 44, Alkaline Phosphatase 86, Total Bilirubin 0.4, Total Protein 7.2, Albumin 4.0, Alb umin/Globulin Ratio 1.25, Lipase 111, Immature Granulocyte % (Auto) 0.3, White Blood Count 7.1, Red Blood Count 4.94, Hemoglobin 14.2, Hematocrit 43.3, Mean Corpuscular Volume 87.7, Mean Corpuscular Hemoglobin 28.7, Mean Corpuscular Hemoglobin Concent 32.8, Red Cell Distribution Width 12.3, Platelet Count 218, Neutrophils (%) (Auto) 56.8, Lymphocytes (%) (Auto) 31.0, Monocytes (%) (Auto) 9.9H, Eosinophils (%) (Auto) 1.6, Basophils (%) (Auto) 0.4, Neutrophils # (Auto) 4.0, Lymphocytes # (Auto) 2.2, Monocytes # (Auto) 0.7, Eosinophils # (Auto) 0.1, Basophils # (Auto) 0.0, Nucleated Red Blood Cells % (auto) 0.0, Blood Urea Nitrogen 11, Creatinine 0.76, Sodium Level 142, Potassium Level 3.7, Chloride Level 107, Carbon Dioxide Level 26 08/08/18 16:28: Urine Color YELLOW, Urine Appearance CLEAR, Urine pH 5.0, Urine Specific [place] 1.026, Urine Protein NEGATIVE, Urine Glucose (UA) NEGATIVE, Urine Ketones 1+H, Urine Blood NEGATIVE, Urine Nitrite NEGATIVE, Urine Bilirubin NEGATIVE, Urine Urobilinogen 0.2, Urine Leukocyte Esterase NEGATIVE, Urine WBC (Auto) 1, Urine RBC (Auto) 2, Urine Hyaline Casts (Auto) 0, Urine Bacteria (Auto) NEGATIVE, Urine Squamous Epithelial Cells 1, Urine Mucus (Auto) SMALL, Urine Sperm (Auto) CBC/BMP Laboratory Tests 08/08/18 14:09 08/08/18 16:21 Red Blood Count 4.94, Mean Corpuscular Volume 87.7, Mean Corpuscular Hemoglobin 28.7, Mean Corpuscular Hemoglobin Concent 32.8, Red Cell Distribution Width 12.3, Neutrophils (%) (Auto) 56.8, Lymphocytes (%) (Auto) 31.0, Monocytes (%) (Auto) 9.9 H, Eosinophils (%) (Auto) 1.6, Basophils (%) (Auto) 0.4, Neutrophils # (Auto) 4.0, Lymphocytes # (Auto) 2.2, Monocytes # (Auto) 0.7, Eosinophils # (Auto) 0.1, Basophils # (Auto) 0.0, Calcium Level 8.7, Aspartate Amino Transf ( AST/SGOT) 34, Alanine Aminotransferase (ALT/SGPT) 44, Alkaline Phosphatase 86, Total Bilirubin 0.4, Total Protein 7.2, Albumin 4.0 Impression Epigastric and left upper quadrant pain Biliary dyskinesia Her abdomen is noticeably less distended this morning. She also feels comf ortable now. I plan to proceed with laparoscopic cholecystectomy for biliary dyskinesia today. Consent was obtained from patient after full discussion of its risks and benefits. I discussed with the patient the details of the proposed procedure, the benefits of performing the procedure, the most common risks on doing the procedure. This may include risks from general anesthesia, risks from laparoscopy including vascular and bowel injury, risk from gallbladder surgery including bile duct injury, bile leakage, possible need to convert to open surgery.. I have given her a chance to ask questions, voice out concerns. Patient has agreed to proceed Plan / VTE VTE Prophylaxis Ordered?: Yes ROSE OSBORN MD Aug 09, 2018 12:43
[2018-08-09] MEDS: SUCRALFATE 1 GM TAB PO SCH ×2 (14:00→21:22)
[2018-08-09] MEDS ORDERED: AMPICILLIN SOD/SULBACTAM SOD 3 GM in D5W MINI-BAG PLUS 100 ML IV ONE (14:00)
[2018-08-09] MEDS ORDERED: BUPIVACAINE HCL 0.25% 30 ML VIAL As Ordered ONE (16:52)
[2018-08-09] MEDS ORDERED: LIDOCAINE 1% SDV INJ 30 ML VIAL As Ordered ONE (16:53)
[2018-08-09] MEDS: fentaNYL 100 MCG/2 ML INJECTION (J3010) IV PRN ×5 (18:30→19:15)
[2018-08-09] MEDS ORDERED: ONDANSETRON 4MG/2ML VIAL (J2405) IV PRN (18:30)
[2018-08-09] MEDS ORDERED: MEPERIDINE INJ 25 MG/ML VIAL (J2175) IV PRN (18:30)
[2018-08-09] MEDS ORDERED: LR 1,000 ML IV SCH (18:30)
[2018-08-09] MEDS: PERCOCET 5MG/325MG TAB PO PRN ×2 (18:30→19:00)
[2018-08-09] MEDS ORDERED: METOCLOPRAMIDE INJ 10MG/2ML VIAL (J2765) IV PRN (18:30)
[2018-08-09] MEDS ORDERED: MONTELUKAST 10 MG TAB PO SCH (21:00)
[2018-08-10] VITALS: BP 120/73
[2018-08-10] MEDS: KETOROLAC 30 MG/ML VIAL (J1885) IV PRN (00:04)
[2018-08-10] MEDS: NORCO, ANEXSIA 5/325MG TABLET (HYDROcodone/ACETAMINOPHEN) PO PRN ×2 (00:05→06:41)
[2018-08-10] MEDS: LR 1,000 ML IV SCH ×2 (00:44→10:27)
[2018-08-10 04:00] VITALS: BP 129/75
--- NOTE | 2018-08-10 04:32 | ROOPDOC ---
[facility] Report Of Operation Report of Operation DATE OF PROCEDURE: 08/09/18 PREPROCEDURE DIAGNOSES: Abdominal pain, biliary dyskinesia. POSTPROCEDURE DIAGNOSES: Same. PROCEDURE: Laparoscopic cholecystectomy. SURGEON: Milan Osborn MD COMMISSARY REPRESENTATIVE: Nita Gtoti DO (PGY-1) ANESTHESIA: Gen. anesthesia. ESTIMATED BLOOD LOSS: Approximately 30 mL. COMPLICATIONS: None. PROCEDURE NOTE: 43 -year-old female admitted emergency department with long- standing intermittent episodes of epigastric, left upper quadrant and right upper quadrant pain and has had several imaging studies and workup with only the most prominent findings including gallbladder with a low ejection fraction of 14% on HIDA scan with EF. She presented to the ER last night and was admitted and now is brought to the OR for laparoscopic cholecystectomy FINDINGS. Liver is mildly enlarged, smooth in contour no obvious nodularities or lesions present. Gallbladder is moderately distended, mildly thick walled but no acute inflammation found. Palpation of the gallbladder as well as the cystic duct does not reveal any stones intraluminally. DESCRIPTION OF PROCEDURE: Patient was given a dose Unasyn 3 g IV preoperatively for prophylaxis. She was brought to the operating room, laid supine on the table, compression boots placed for DVT prophylaxis. General endotracheal anesthesia started. Her abdomen then prepped and draped in usual sterile fashion. Surgical timeout was performed prior to starting surgery. Entry into the abdomen done through an incision above the umbilicus. A Veress needle was inserted with a controlled fashion. CO2 insufflation started to pressure 15 mmHg. Using the same incision a 5 mm Visiport was placed under direct vision laparoscope. The area underneath the insertion site was inspected and no injury found. She was then placed in steep reverse Trendelenburg. Her right side was tilted up to further expose the gallbladder. Under direct vision a 11 mm epigastric port and two 5 mm working ports placed along the right subcostal line. Operative findings: Her liver is noted to be smooth in contour no nodularities or lesions found. Her gallbladder is mildly thickened, mildly distended. No acute inflammation found. I palpated at the neck of the gallbladder and did not feel any stones intraluminally. The fundus of the gallbladder was grasped and the gallbladder was elevated superiorly exposing the neck of the gallbladder. The peritoneum overlying the area was opened up and dissected free both anteriorly and posteriorly to help with retraction of the gallbladder. The hepatocystic triangle was approached and dissected using a [place] instrument. The cystic duct was identified coming off from the next gallbladder this was circumferentially dissected. The cystic artery was identified in its usual position medially behind a small lymph node of [place]. This was similarly circumferentially dissected off surrounding adipose tissue. We continued posterior dissection proximally at the neck of the gallbladder the left the neck of the gallbladder off the liver plate until a critical view of safety was achieved whereby only the previously identified duct and artery coursing through the neck the gallbladder. At this point the cystic artery was clipped 4 times and divided. After again checking her anatomy and verifying that the previously identified cystic duct, this was also clipped 4 times and divided. The rest of the gallbladder was then dissected free of the gallbladder bed using Bovie cautery. The gallbladder was then placed in an Endo Catch bag and retrieved outside through the epigastric port site. After resumming insufflation, I inspected the clips and noted this to be in place. No further bleeding noted. No bile leakage noted. The abdomen was insufflated all ports were removed. The epigastric fascial defect repaired with 0 Vicryl in a mattress fashion. Rest of the skin incisions closed with 4-0 Monocryl in subcuticular fashion. The 2 subcostal ports continued to lose from the deep subcutaneous source and thus I placed 3-0 nylon's for hemostasis with good effect. Steri-Strips and gauze dressings were placed, the wound. Patient was informed they awakened, extubated and brought to recovery room stable MILAN OSBORN MD Aug 10, 2018 04:32
[2018-08-10] MEDS: SUCRALFATE 1 GM TAB PO SCH ×2 (06:00→06:35)
[2018-08-10 07:35] LABS: BASO % 0.3 % (0.0-1.0); HEMATOCRIT 37.5 % (36.0-47.0); HEMOGLOBIN 12.5 g/dl (12.0-15.5); LYMPH # 1.3 10^3/uL (1.5-4.5); LYMPH % 16.7 % (24.0-44.0); MEAN CORPUSCULAR HEMOGLOBIN 29.1 pg (27.0-33.0); MEAN CORPUSCULAR HGB CONC 33.3 g/dl (32.0-36.5); MEAN CORPUSCULAR VOLUME 87.2 fl (80.0-96.0); MONO # 0.5 10^3/uL (0.0-0.8); MONO % 6.3 % (0.0-5.0); NEUTROPHILS # 5.7 10^3/uL (1.8-7.7); NEUTROPHILS % 76.3 % (36.0-66.0); PLATELET COUNT, AUTOMATED 217 10^3/uL (150-450); WHITE BLOOD COUNT 7.5 10^3/uL (4.0-10.0)
[2018-08-10 08:00] VITALS: BP 111/63
[2018-08-10 08:03] LABS: ALBUMIN 3.3 GM/DL (3.2-5.2); ALT/SGPT 40 U/L (12-78); BILIRUBIN,TOTAL 0.4 MG/DL (0.2-1.0); BLOOD UREA NITROGEN 6 MG/DL (7-18); CALCIUM LEVEL 8.6 MG/DL (8.5-10.1); CARBON DIOXIDE LEVEL 26 MEQ/L (21-32); CHLORIDE LEVEL 104 MEQ/L (98-107); CREATININE FOR GFR 0.63 MG/DL (0.55-1.30); GLOMERULAR FILTRATION RATE > 60.0 (>58); GLUCOSE, FASTING 114 MG/DL (70-100); POTASSIUM SERUM 3.9 MEQ/L (3.5-5.1); SODIUM LEVEL 138 MEQ/L (136-145); TOTAL PROTEIN 6.5 GM/DL (6.4-8.2)
--- NOTE | 2018-08-10 08:14 | IPNPDOC ---
Subjective General Date/Time Seen The patient was seen on 08/10/18 at 07:58. Subject Chief Complaint/History The patient is a 43-year-old female admitted with a reason for visit of Biliary Dyskinesia; Luq Abd Pain. Patient described that she has right upper quadrant 5/10 sharp pain worsened by movement and inhalation. She has some nausea but denied any emesis; has been tolerating clear liquid diet well. Patient had been advanced to regular diet and she is waiting for breakfast this morning. Current Medications Current Medications Current Medications Acetaminophen/ Hydrocodone Bitart ([place], Anexsia 5/325) 1 tab Q4HP PRN PO MODERATE PAIN (PS 5-7) Last administered on 08/10/18at 06:41; Start 08/08/18 at 18:45 Acetaminophen/ Hydrocodone Bitart ([place], Anexsia 5/325) 2 tab Q6HP PRN PO SEVERE PAIN (PS 8-10) Last administered on 08/08/18at 22:03; Start 08/08/18 at 18:45 Bupropion HCl (Wellbutrin Xl) 150 mg DAILY PO ; Start 08/09/18 at 09:00 Fentanyl Citrate (Sublimaze) 25 mcg Q5MP PRN IV MODERATE PAIN (PS 4-7) Last administered on 08/09/18at 19:15; Start 08/09/18 at 18:30 Fentanyl Citrate (Sublimaze) 50 mcg Q30M PRN IV MODERATE/SEVERE PAIN (PS 5-10) Last administered on 08/08/18at 18:43; Start 08/08/18 at 18:30; Stop 08/08/18 at 21:57; Status DC Fentanyl Citrate (Sublimaze) 50 mcg Q30MP PRN IV MODERATE/SEVERE PAIN (PS 5- 10); Start 08/08/18 at 18:30; Status Cancel Home Med (Med Rec Complete!) ASDIRECTED XX ; Start 08/08/18 at 19:00; Stop 07/22 02/06 at 19:00; Status DC Ketorolac Tromethamine (ToRADol) 30 mg Q6HP PRN IV MILD/MODERATE PAIN (PS 1-7) Last administered on 08/10/18at 00:04; Start 08/08/18 at 18:45; Stop 08/13/18 at 18:44 Lactated Ringer's 1,000 ml @ 100 mls/hr Q10H IV Last administered on 08/09/18 21:22; Start 08/08/18 at 18:44 Lactated Ringer's 1,000 ml @ 100 mls/hr Q10H IV ; Start 08/09/18 at 18:30; Stop 08/09/18 at 19:30; Status DC Meperidine HCl (Demerol) 12.5 mg Q5MP PRN IV SHIVERING; Start 08/09/18 at 18:30; Stop 08/09/18 at 19:30; Status DC Metoclopramide HCl (REGLAN INJection) 10 mg Q6HP PRN IV NAUSEA OR VOMITING; Start 08/09/18 at 18:30; Stop 08/09/18 at 19:30; Status DC Montelukast Sodium (Singulair) 10 mg QHS PO Last administered on 08/09/18 21:22; Start 08/09/18 at 21:00 Morphine Sulfate (Morphine Sulfate Inj) 4 mg Q2HP PRN IV SEVERE PAIN (PS 8-10) Last administered on 08/09/18 00:23; Start 08/08/18 at 18:45 Ondansetron HCl (ZOFRAN INJection) 4 mg Q4HP PRN IV NAUSEA OR VOMITING; Start 08/09/18 at 18:30; Stop 08/09/18 at 19:30; Status DC Ondansetron HCl (ZOFRAN INJection) 4 mg Q6HP PRN IV NAUSEA OR VOMITING; Start 08/08/18 at 18:45 Oxycodone/ Acetaminophen (Percocet 5mg/ 325mg Tablet) 1 tab ASDIRECTED PRN PO MILD/MODERATE PAIN (PS 1-7) Last administered on 08/09/18 19:00; Start 08/09/18 at 18:30; Stop 08/09/18 at 19:02; Status DC Pantoprazole Sodium (Protonix) 40 mg DAILY IV Last administered on 08/09/18 09:04; Start 08/09/18 at 09:00 Senna/Docusate Sodium (Senokot S) 1 tab BID PO Last administered on 08/09/18 21:22; Start 08/08/18 at 21:00 Sucralfate (Carafate) 1 gm Q8H PO Last administered on 2/19/19at 21:22; Start 08/08/18 at 22:00 Allergies Coded Allergies: Prednisone (Verified Allergy, Unknown, HIVES, 07/14/18) Objective Physical Examination Examination GENERAL APPEARANCE:[Patient seen, laying in bed, awake, alert, and oriented. Tired looking, in mild acute distress]. SKIN: [Warm and moist]. HEENT: [Normocephalic, atraumatic. [place] palpebral conjunctiva, anicteric scl erae. Lips and mucosa appear moist]. NECK: [Supple. No obvious jugular venous distention]. LUNGS: [Clear to auscultation bilaterally. No wheezing appreciated]. HEART: [No chest wall abnormalities. Regular rate and rhythm with no murmurs appreciated]. ABDOMEN: soft, non-distended. No guarding. Tenderness upon palpation in right upper upper&lower quadrant and left upper quadrant. Laproscopic incision wound covered with tape with no obvious sign of infection. No obvious ecchymosis noted]. EXTREMITIES: [Extremities have no deformities. No edema identified. No calf tenderness upon palpation b/l]. Vital Signs Vital Signs Date Time Temp Pulse Resp B/P (MAP) Pulse Ox O2 Delivery O2 Flow Rate FiO2 08/10/18 07:30 18 08/10/18 04:00 97.2 80 129/75 (93) 96 1.0 08/09/18 19:20 Nasal Cannula I&Os I&O- Last 24 Hours up to 6 AM 08/10/18 06:00 Intake Total 2750 ml Output Total 1680 ml Balance 1070 ml Laboratory Data Labs 24H Laboratory Tests 2 08/10/18 07:17: Immature Granulocyte % (Auto) 0.4, White Blood Count 7.5, Red Blood Count 4.30, Hemoglobin 12.5, Hematocrit 37.5, Mean Corpuscular Volume 87.2, Mean Corpuscular Hemoglobin 29.1, Mean Corpuscular Hemoglobin Concent 33.3, Red Cell Distribution Width 11.9, Platelet Count 217, Neutrophils (%) (Auto) 76.3H, Lymphocytes (%) (Auto) 16.7L, Monocytes (%) (Auto) 6.3H, Eosinophils (%) (Auto) 0.0, Basophils (%) (Auto) 0.3, Neutrophils # (Auto) 5.7, Lymphocytes # (Auto) 1.3L, Monocytes # (Auto) 0.5, Eosinophils # (Auto) 0.0, Basophils # (Auto) 0.0, Nucleated Red Blood Cells % (auto) 0.0 CBC/BMP Laboratory Tests 08/10/18 07:17 Red Blood Count 4.30, Mean Corpuscular Volume 87.2, Mean Corpuscular Hemoglobin 29.1, Mean Corpuscular Hemoglobin Concent 33.3, Red Cell Distribution Width 11.9, Neutrophils (%) (Auto) 76.3 H, Lymphocytes (%) (Auto) 16.7 L, Monocytes (%) (Auto) 6.3 H, Eosinophils (%) (Auto) 0.0, Basophils (%) (Auto) 0.3, Neutrop hils # (Auto) 5.7, Lymphocytes # (Auto) 1.3 L, Monocytes # (Auto) 0.5, Eosinophils # (Auto) 0.0, Basophils # (Auto) 0.0 Plan / VTE VTE Prophylaxis Ordered?: Yes JORGE RIOS DO Aug 10, 2018 08:14
[2018-08-10] MEDS ORDERED: ALBUTEROL 90 MCG/ACT 8GM HFA INHALER INH PRN (08:15)
[2018-08-10] MEDS: SENOKOT S TAB PO SCH (08:57)
[2018-08-10] MEDS: buPROPion **XL** TABLET 150MG (WELLBUTRIN XL) PO SCH (08:57)
[2018-08-10] MEDS ORDERED: DICYCLOMINE 10 MG CAP PO PRN (09:00)
[2018-08-10] MEDS ORDERED: Docusate Sod/Senna PO (09:03)
[2018-08-10] MEDS ORDERED: NORCOTAB PO (09:03)
--- NOTE | 2018-08-10 09:41 | DS.PDOC ---
Discharge Summary General Date of Admission Aug 08, 2018 at 18:44 Date of Discharge 08/10/18 Attending Physician: ROSE ROLDAN MD Discharge Summary PROCEDURES PERFORMED DURING STAY: Laparoscopic cholecystectomy ADMITTING DIAGNOSES: 1. Billiary dyskinesia 2. Abdominal pain DISCHARGE DIAGNOSES: 1. Biliary dyskinesia s/p laparoscopic cholecystectomy 2. Abdominal pain 3. Asthma 4. Anxiety 5. GERD 6. Dyslipidemia 7. Thyroid disease, unspecified, not on medication. COMPLICATIONS/CHIEF COMPLAINT: Biliary Dyskinesia; Luq Abd Pain. HISTORY OF PRESENT ILLNESS: Patient is a 43 yo female with PMH of asthma, GERD, anxiety, and high cholesterol presented at [facility] ER on 08/08/18 d/t epigastric and left upper quadrant as well as mild right upper quadrant pain and discomfort that started in the morning. She stated that she was feeling fine last night. Described the pain as twisting crampy pain, started after she drank a glass of water. Nausea with multiple episodes of emesis reported. Patient has been having intermittent epigastric and left upper quadrant discomfort normal upper and lower endoscopy 2 weeks ago. She also had abdominal normal CT in Jun 2018. HIDA scan in [place] showed low ejection fraction of 14%. Pt evaluated in Dr. Roldan's clinic and was scheduled to have cholecystectomy done next week. HOSPITAL COURSE: Patient was given pain control and zofran for nausea control. Patient underwent laparoscopic cholecystectomy 08/09/18 evening without complication. Patient described that she has right upper quadrant 5/10 sharp pain worsened by movement and inhalation. She has some nausea but denied any emesis; has been tolerating clear liquid diet well. Patient had been advanced to regular diet and started eating solid food 08/10/18 morning. Reported tolerating the diet well. Reported no bowel movement or urination yet but has been passing gas. Denies fever, chills, SOB, wheezing, chest pain, or calf pain. DISCHARGE MEDICATIONS: Please see below. ALLERGIES: Please see below. PHYSICAL EXAMINATION ON DISCHARGE: VITAL SIGNS: Please see below. GENERAL APPEARANCE:Patient seen, laying in bed, awake, alert, and oriented. Tired looking, in mild acute distress. SKIN: Warm and moist. HEENT: Normocephalic, atraumatic. [place] palpebral conjunctiva, anicteric sclerae. Lips and mucosa appear moist. NECK: Supple. No obvious jugular venous distention. LUNGS: Clear to auscultation bilaterally. No wheezing appreciated. HEART: No chest wall abnormalities. Regular rate and rhythm with no murmurs appreciated. ABDOMEN: soft, non-distended. No guarding. Tenderness upon palpation in right upper upper&lower quadrant and left upper quadrant. Laparoscopic incision wound covered with tape with no obvious sign of infection. No obvious ecchymosis noted]. EXTREMITIES: Extremities have no deformities. No edema identified. No calf tenderness upon palpation b/l. LABORATORY DATA: Please see below. PROGNOSIS: Good ACTIVITY: As tolerated. DIET: Low fat diet DISCHARGE PLAN AND INSTRUCTION: Patient will follow up with Dr. Roldan in 2 weeks per office arrangement. Please remove gauze dressing on 08/11/18 morning. Please do not remove steri strip until next office visit. Allow shower. Please pat incisions until dry. ITEMS TO FOLLOWUP ON ON OUTPATIENT: 1. Abdominal pain 2. Increased bleeding time DISCHARGE CONDITION: Stable. TIME SPENT ON DISCHARGE: Greater than 15 minutes. Vital Signs/I&Os Vital Signs Date Time Temp Pulse Resp B/P (MAP) Pulse Ox O2 Delivery O2 Flow Rate FiO2 08/10/18 07:30 18 08/10/18 04:00 97.2 80 129/75 (93) 96 1.0 08/09/18 19:20 Nasal Cannula I&O- Last 24 Hours up to 6 AM 08/10/18 05:59 Intake Total 2990 ml Output Total 1680 ml Balance 1310 ml Laboratory Data Labs 24H Laboratory Tests 2 08/10/18 07:17: Immature Granulocyte % (Auto) 0.4, White Blood Count 7.5, Red Blood Count 4.30, Hemoglobin 12.5, Hematocrit 37.5, Mean Corpuscular Volume 87.2, Mean Corpuscular Hemoglobin 29.1, Mean Corpuscular Hemoglobin Concent 33.3, Red Cell Distribution Width 11.9, Platelet Count 217, Neutrophils (%) (Auto) 76.3H, Lymphocytes (%) (Auto) 16.7L, Monocytes (%) (Auto) 6.3H, Eosinophils (%) (Auto) 0.0, Basophils (%) (Auto) 0.3, Neutrophils # (Auto) 5.7, Lymphocytes # (Auto) 1.3L, Monocytes # (Auto) 0.5, Eosinophils # (Auto) 0.0, Basophils # (Auto) 0.0, Nucleated Red Blood Cells % (auto) 0.0, Anion Gap 8, Glomerular Filtration Rate > 60.0, Blood Urea Nitrogen 6L, Creatinine 0.63, Sodium Level 138, Potassium Level 3.9, Chloride Level 104, Carbon Dioxide Level 26, Calcium Level 8.6, Aspartate Amino Transf (AST/SGOT) 26, Alanine Aminotransferase (ALT/SGPT) 40, Alkaline Phosphatase 71, Total Bilirubin 0.4, Total Protein 6.5, Albumin 3.3, Albumin/Globulin Ratio 1.03 CBC/BMP Laboratory Tests 08/10/18 07:17 Red Blood Count 4.30, Mean Corpuscular Volume 87.2, Mean Corpuscular Hemoglobin 29.1, Mean Corpuscular Hemoglobin Concent 33.3, Red Cell Distribution Width 11.9, Neutrophils (%) (Auto) 76.3 H, Lymphocytes (%) (Auto) 16.7 L, Monocytes (%) (Auto) 6.3 H, Eosinophils (%) (Auto) 0.0, Basophils (%) (Auto) 0.3, Neutrophils # (Auto) 5.7, Lymphocytes # (Auto) 1.3 L, Monocytes # (Auto) 0.5, Eosinophils # (Auto) 0.0, Basophils # (Auto) 0.0, Calcium Level 8.6, Aspartate Amino Transf (AST/SGOT) 26, Alanine Aminotransferase (ALT/SGPT) 40, Alkaline Phosphatase 71, Total Bilirubin 0.4, Total Protein 6.5, Albumin 3.3 Discharge Medications Scheduled Bupropion Hcl (Bupropion HCl Xl) 150 Mg Tab, 150 MG PO DAILY, (Reported) Montelukast Sodium (Montelukast Sodium) 10 Mg Tab, 10 MG PO QHS, (Reported) Pantoprazole Sodium Sesquihydr (Protonix) 40 Mg Tab, 40 MG PO DAILY, (Reported) [Docusate Sod/Senna] 1 TAB TAB, 1 TAB PO BID Scheduled PRN (Proair Respiclick) 108 Mcg/Act Aer, 2 PUFF INH Q4HP PRN for shortness of breath, (Reported) Acetaminophen/Hydrocodone ([place], Anexsia 5/325) 1 Tab Tab, 1-2 TAB PO Q4HP PRN for MODERATE PAIN (PS 5-7) Albuterol Sulfate (Ventolin Hfa) 108 Mcg/Act Aer, 108 MCG INH PRN PRN for SHORTNESS OF BREATH, (Reported) Dicyclomine HCl (Dicyclomine HCl) 10 Mg Cap, 10 MG PO Q6H PRN for CRAMPS, (Reported) Sumatriptan Succinate (Imitrex) 50 Mg Tab, 25 MG PO PRN PRN for MIGRAINE, (Reported) Allergies Coded Allergies: Prednisone (Verified Allergy, Unknown, HIVES, 07/14/18) JORGE RIOS DO Aug 10, 2018 09:41 ROSE ROLDAN MD Aug 11, 2018 09:02
[2018-08-10 12:00] VITALS: BP 115/59
== END 2018-08-10 13:35 | disposition home or self-care (01) | DRG 263 ==
LOC: M ED 13:45 → M ED INP 18:44 → M PED 20:55
PROVIDERS: ADMIT Surgery; ATTEND Surgery
PROC: 0FT44ZZ Resection of Gallbladder, Percutaneous Endoscopic Approach (ICD-10-PCS; principal; 2018-08-09 15:30)
DX: K82.8 Other specified diseases of gallbladder (principal); E07.9 Disorder of thyroid, unspecified; J45.909 Unspecified asthma, uncomplicated; K21.9 Gastro-esophageal reflux disease without esophagitis; E78.00 Pure hypercholesterolemia, unspecified; F41.9 Anxiety disorder, unspecified; Z90.49 Acquired absence of other specified parts of digestive tract; Z90.710 Acquired absence of both cervix and uterus; Z79.899 Other long term (current) drug therapy; Z88.8 Allergy status to other drugs, medicaments and biological substances

== ENCOUNTER 2018-08-22 07:12 | Emergency (ER) | payer BC ==
[~2018-08-22] VITALS: Ht 160 cm; Wt 81.4 kg
[~2018-08-22 07:12] MED LIST changes: +BUPR150T3 PO; +Docusate Sod/Senna PO; +MONT10TA2 PO; +PROA1AER2 INH
[2018-08-22] MEDS ORDERED: MORPHINE 2 MG/ML 1ML SYRINGE (J2270) IV ONE (07:45)
[2018-08-22] MEDS ORDERED: ASPIRIN 81 MG CHEW TABLET PO ONE (07:45)
[2018-08-22] MEDS ORDERED: ONDANSETRON 4MG/2ML VIAL (J2405) IV ONE (07:45)
[2018-08-22] MEDS ORDERED: NS 1,000 ML IV ONE (08:00)
[2018-08-22 08:05] LABS: BASO # 0.1 10^3/uL (0.0-0.2); BASO % 0.9 % (0.0-1.0); EOS # 0.3 10^3/uL (0.0-0.50); EOS % 4.1 % (0.0-3.0); HEMATOCRIT 40.1 % (36.0-47.0); HEMOGLOBIN 13.3 g/dl (12.0-15.5); LYMPH # 1.9 10^3/uL (1.5-4.5); LYMPH % 25.2 % (24.0-44.0); MEAN CORPUSCULAR HEMOGLOBIN 28.9 pg (27.0-33.0); MEAN CORPUSCULAR HGB CONC 33.2 g/dl (32.0-36.5); MEAN CORPUSCULAR VOLUME 87.2 fl (80.0-96.0); MONO # 0.7 10^3/uL (0.0-0.8); NEUTROPHILS # 4.6 10^3/uL (1.8-7.7); NEUTROPHILS % 60.7 % (36.0-66.0); PLATELET COUNT, AUTOMATED 253 10^3/uL (150-450); WHITE BLOOD COUNT 7.6 10^3/uL (4.0-10.0)
[2018-08-22] MEDS ORDERED: GI COCKTAIL 50ML BTL(HYOSCYAMINE/MAALOX/LIDOCAINE VISCOUS)(1:3:1) As Ordered ONE (08:20)
--- NOTE | 2018-08-22 08:22 | REP ---
Portable chest x-ray: Sitting AP view. History: Chest pain. Comparison study: May 02, 2018. Findings: EKG monitoring electrodes overlie the chest. Heart is not enlarged. Lung angulo are clear. Pleural angles are sharp. Pulmonary vasculature is not increased. No significant bony abnormality. Impression: Negative portable chest x-ray. Electronically Signed by Alex Zapata MD 08/22/2018 08:13 A
[2018-08-22] MEDS ORDERED: GI COCKTAIL 50ML BTL(HYOSCYAMINE/MAALOX/LIDOCAINE VISCOUS)(1:3:1) PO ONE (08:30)
[2018-08-22] MEDS ORDERED: IPRATROPIUM 0.5MG/ALBUTEROL 2.5MG INH SOL UD 3ML (DUONEB)(J7620) NEB ONE (08:30)
[2018-08-22] MEDS ORDERED: hydrOXYzine 25 MG TAB PO ONE (08:45)
[2018-08-22 08:55] LABS: ALBUMIN 3.6 GM/DL (3.2-5.2); ALT/SGPT 37 U/L (12-78); BILIRUBIN,DIRECT < 0.1 MG/DL (0.0-0.2); BILIRUBIN,TOTAL 0.3 MG/DL (0.2-1.0); BLOOD UREA NITROGEN 13 MG/DL (7-18); CALCIUM LEVEL 8.8 MG/DL (8.5-10.1); CARBON DIOXIDE LEVEL 29 MEQ/L (21-32); CHLORIDE LEVEL 104 MEQ/L (98-107); CK-MB VALUE MASS < 1.0 NG/ML (<3.6); CPK CREATINE PHOSPHOKINASE 94 U/L (26-192); CREATININE FOR GFR 0.77 MG/DL (0.55-1.30); GLOMERULAR FILTRATION RATE > 60.0 (>58); GLUCOSE, FASTING 120 MG/DL (70-100); LIPASE 227 U/L (73-393); MB/CK RELATIVE INDEX 1.06 (< OR =4); NT-PRO BNP 7 PG/ML (<125); POTASSIUM SERUM 4.3 MEQ/L (3.5-5.1); SODIUM LEVEL 141 MEQ/L (136-145); TOTAL PROTEIN 6.8 GM/DL (6.4-8.2); TROPONIN I < 0.02 NG/ML (< 0.10)
[2018-08-22] MEDS ORDERED: ISOVUE-370 76% 100ML VIAL (Q9967) As Ordered ONE (08:58)
[2018-08-22] MEDS ORDERED: KETOROLAC 30 MG/ML VIAL (J1885) IV ONE (09:00)
--- NOTE | 2018-08-22 09:53 | REP ---
CT ANGIOGRAM CHEST: TECHNIQUE: Axial contrast enhanced images from the thoracic inlet to the upper abdomen using 100 mL Isovue 370 intravenous contrast material with multiplanar reformations. There is no CT evidence of pulmonary embolism. There is no thoracic aortic aneurysm or dissection. Heart is normal in size. Normal sized mediastinal lymph nodes are present without evidence of mediastinal, hilar, or chest wall lymphadenopathy. There is no pleural or pericardial effusion. Lungs are free of infiltrate. IMPRESSION: No CT evidence of pulmonary embolism or other significant acute abnormality. Electronically Signed by David Salinas MD 08/22/2018 05:37 P
--- NOTE | 2018-08-22 10:09 | REP ---
CT ABDOMEN AND PELVIS WITH IV CONTRAST: TECHNIQUE: Axial contrast enhanced images from the lung bases to the pubic symphysis using 100 mL Isovue 370 intravenous contrast material with multiplanar reformations. The liver, spleen, adrenals, pancreas, and kidneys appear unremarkable. There is no hydronephrosis bilaterally. There is no abdominal aortic aneurysm. There is no adenopathy. There is no free air or free fluid. I see no bowel wall thickening. There are a few mildly dilated small bowel loops in the upper abdomen which may represent a mild ileus. There is no compelling evidence of bowel obstruction. No pelvic mass is seen. Patient has had a prior hysterectomy. Urinary bladder is unremarkable. Patient has had a prior cholecystectomy. There is no significant biliary dilatation. IMPRESSION: A few mildly dilated small bowel loops in the upper abdomen may represent a mild ileus. No free air or free fluid or other acute finding. Patient is status post cholecystectomy and hysterectomy. Electronically Signed by David Salinas MD 08/22/2018 05:38 P
[2018-08-22 10:43] LABS: CK-MB VALUE MASS < 1.0 NG/ML (<3.6); CPK CREATINE PHOSPHOKINASE 80 U/L (26-192); MB/CK RELATIVE INDEX 1.25 (< OR =4); TROPONIN I < 0.02 NG/ML (< 0.10)
[2018-08-22] MEDS ORDERED: OMEP40CA2 PO (11:47)
[2018-08-22] MEDS ORDERED: NAPR-885 PO (11:48)
[2018-08-22 12:50] VITALS: BP 100/66
--- NOTE | 2018-08-22 19:40 | ECGEPIP ---
Stationary ECG Study [facility] ED Test Date: 2018-08-22 Pat Name: WILBERTO TORRES Department: Room: - Gender: F Author Agent: : [id number] Requested By: James Jeong Order Number: [id number] Reading MD: James Jeong Measurements Intervals [place] Rate: 78 P: 10 NV: 144 QRS: 15 QRSD: 86 T: 2 QT: 369 QTc: 421 Interpretive Statements SINUS RHYTHM POSSIBLE RIGHT VENTRICULAR CONDUCTION DELAY NONSPECIFIC ST T WAVE CHANGES DELAYED R WAVE PROGRESSION 05/02/[address] T WAVE CHANGES Electronically Signed On 08-22-2018 19:39:54 EST by James Jeong
== END 2018-08-22 12:58 | disposition home or self-care (01) ==
LOC: M ED 07:12
DX: R07.89 Other chest pain (principal); R11.0 Nausea; E78.5 Hyperlipidemia, unspecified; Z87.19 Personal history of other diseases of the digestive system; Z98.890 Other specified postprocedural states; Z82.49 Family history of ischemic heart disease and other diseases of the circulatory system
CPT/HCPCS: 71045; 71275; 74177; 80048; 80076; 82550; 82553; 83690; 83880; 84439; 84443; 84484; 85025; 93005; 93041; 94640; 94760; 96374; 96375; 99285; J1885; J2270; J2405; Q9967

== ENCOUNTER → 2019-03-11 | Outpatient (REF) | payer BC ==
[~2019-03-11] MED LIST changes: +HYDR-3715 PO; -LIDO1SOL7 PO; +LIDO1SOL8 PO; +NAPR-885 PO; -NORCOTAB PO; +OMEP40CA2 PO
[2019-03-11 13:30] LABS: CREATININE, URINE 76.6 MG/DL
[2019-03-21 00:14] LABS: DOPAMINE 303 ug/24 hr (0-510); DOPAMINE TOTAL URINE 202 ug/L (Undefined); EPINEPHRINE 8 ug/24 hr (0-20); EPINEPHRINE TOTAL URINE 5 ug/L (Undefined); METANEPHRINE TOTAL URINE 53 ug/L (Undefined); METANEPHRINE URINE 80 ug/24 hr (45-290); NOREPINEPHRINE 48 ug/24 hr (0-135); NOREPINEPHRINE TOTAL URINE 32 ug/L (Undefined); NORMETANEPHRINE TOTAL URINE 121 ug/L (Undefined); NORMETANEPHRINE URINE 182 ug/24 hr (82-500)
== END ==
LOC: M LAB REF 07:46
PROVIDERS: ATTEND Nurse Practitioner Adult Health
DX: R07.9 Chest pain, unspecified (principal); D35.00 Benign neoplasm of unspecified adrenal gland

== ENCOUNTER → 2019-03-14 | Outpatient (REF) | payer BC ==
[2019-03-17 00:08] LABS: Lyme Disease IgG/IgM Antibodie <0.91 ISR (0.00-0.90); Lyme Disease IgM Ab Quantitati <0.80 index (0.00-0.79)
== END ==
LOC: M LAB REF 19:19
PROVIDERS: ATTEND Nurse Practitioner Adult Health
DX: Z11.59 Encounter for screening for other viral diseases (principal); R79.82 Elevated C-reactive protein (CRP)

== ENCOUNTER → 2019-04-12 | Outpatient (REF) | payer BC ==
[~2019-04-12] MED LIST changes: -OMEP40CA2 PO; +OMEP40CA97 PO
[2019-04-15 00:08] LABS: BABESIOSIS LEVEL IGG <1:10 (Neg:<1:10); BABESIOSIS LEVEL IGM <1:10 (Neg:<1:10)
== END ==
LOC: M LAB REF 12:18
PROVIDERS: ATTEND Nurse Practitioner Adult Health
DX: M79.10 Myalgia, unspecified site (principal); R79.82 Elevated C-reactive protein (CRP)

== ENCOUNTER → 2019-05-16 | Outpatient (CLI) | payer BC ==
--- NOTE | 2019-05-16 12:40 | REP ---
Clinical: Lower back pain with recent trauma/fall . Technique: AP, lateral, bilateral oblique, and coned-down views. Findings: Alignment and lordosis is maintained. The vertebral bodies including transverse process and spinous processes are intact and normal. There is no evidence for acute fracture / compression injury or subluxation. No evidence for spondylolysis or spondylolisthesis. Minimal age-related degenerative changes include endplate sclerosis with minimal spurring and mild disc space narrowing involving L3-4, and L5-S1. Impression: Minimal age-related degenerative changes. Electronically Signed by Wilman Garces MD 05/16/2019 12:31 P
--- NOTE | 2019-05-16 12:40 | REP ---
Clinical: thoracic pain with recent trauma/fall . Technique: AP, lateral, and swimmers views. Findings: Alignment and kyphosis is maintained. Vertebral bodies intact. No acute fracture / compression injury or subluxation. No degenerative changes. Paravertebral soft tissues are normal. Impression: Normal thoracic spine series. Electronically Signed by Wilman Garces MD 05/16/2019 12:32 P
--- NOTE | 2019-05-16 12:41 | REP ---
Clinical: Pain with recent trauma/fall . Technique: AP, lateral, flexion/extension, bilateral oblique, and open-mouth views. Findings: Alignment and lordosis is maintained. There is no evidence for acute fracture / compression injury or subluxation. No significant degenerative changes are appreciated. Oblique views demonstrate patent neural foramen. Open mouth view demonstrates normal C1-C2 articulation and odontoid process. Impression: Normal cervical spine series. Electronically Signed by Wilman Garces MD 05/16/2019 12:32 P
== END ==
LOC: M WUC 11:48
PROVIDERS: ATTEND Physician Assistant
DX: S16.1XXA Strain of muscle, fascia and tendon at neck level, initial encounter (principal); S29.012A Strain of muscle and tendon of back wall of thorax, initial encounter; S39.012A Strain of muscle, fascia and tendon of lower back, initial encounter; X58.XXXA Exposure to other specified factors, initial encounter

== ENCOUNTER 2019-07-04 13:26 | Emergency (ER) | payer BC ==
[~2019-07-04] VITALS: Ht 160 cm; Wt 83.6 kg
[2019-07-04] MEDS ORDERED: FAMO1TAB11 (13:35)
[2019-07-04] MEDS ORDERED: SPIR12.9 (13:35)
[2019-07-04] MEDS ORDERED: ROSU10TA6 (13:35)
[2019-07-04 17:01] VITALS: BP 121/80
--- NOTE | 2019-07-04 18:28 | REP ---
Right elbow: Four views. History: Worsening pain since a fall. Findings: Four views of the right elbow demonstrate normal alignment of the glenohumeral and acromioclavicular joints. There is no evidence of fracture, subluxation or joint effusion. There is a small exostosis projecting anteriorly from the distal humeral diaphysis noted incidentally. Impression: No acute bony abnormality. Small anterior humeral exostosis noted incidentally. Electronically Signed by Alex Zapata MD 07/05/2019 08:09 A
== END 2019-07-04 17:10 | disposition home or self-care (01) ==
LOC: M ED 14:36
DX: M79.621 Pain in right upper arm (principal); M89.8X2 Other specified disorders of bone, upper arm; E11.9 Type 2 diabetes mellitus without complications; I10 Essential (primary) hypertension; E78.5 Hyperlipidemia, unspecified; R51 Headache; J45.909 Unspecified asthma, uncomplicated; K21.9 Gastro-esophageal reflux disease without esophagitis; Z83.2 Family history of diseases of the blood and blood-forming organs and certain disorders involving the immune mechanism; W10.9XXA Fall (on) (from) unspecified stairs and steps, initial encounter; Y92.099 Unspecified place in other non-institutional residence as the place of occurrence of the external cause; Y93.9 Activity, unspecified; Y99.9 Unspecified external cause status; Z79.899 Other long term (current) drug therapy

== ENCOUNTER 2019-10-23 09:19 | Inpatient (IN) | payer BC ==
[~2019-10-23] VITALS: Ht 160 cm; Wt 82.3 kg
[~2019-10-23 09:19] MED LIST changes: +FAMO1TAB11; -LIDO1SOL8 PO; +LIDO2SOL17 PO; -MONT10TA2 PO; +MONT10TA4 PO; +ROSU10TA6; +SPIR12.9 INH
[2019-10-23] MEDS ORDERED: BOOSTRIX/ADACEL VACCINE (DIPHTH/PERTUSS/ACELL/TETANUS) 0.5ML SYR IM ONE (10:15)
[2019-10-23] MEDS ORDERED: KETOROLAC 30 MG/ML 1ML VIAL IV ONE (10:15)
--- NOTE | 2019-10-23 10:34 | REP ---
Right hand series: Four views. History: Injury. Findings: Four views of the right hand show overall normal mineralization. There is dorsal soft tissue swelling over the metacarpals. No fracture or opaque foreign body is seen. No subluxation noted. Impression: Dorsal metacarpal soft tissue swelling. No fracture or other acute abnormality seen. Electronically Signed by Alex Zapata MD 10/23/2019 10:26 A
[2019-10-23 10:41] LABS: BASO # 0.1 10^3/uL (0.0-0.2); BASO % 0.4 % (0.0-1.0); EOS % 0.3 % (0.0-3.0); HEMATOCRIT 42.9 % (36.0-47.0); HEMOGLOBIN 14.6 g/dl (12.0-15.5); LYMPH # 1.9 10^3/uL (1.5-5.0); LYMPH % 16.9 % (24.0-44.0); MEAN CORPUSCULAR HEMOGLOBIN 29.3 pg (27.0-33.0); MEAN CORPUSCULAR VOLUME 86.1 fl (80.0-96.0); MONO # 0.9 10^3/uL (0.0-0.8); MONO % 7.6 % (0.0-5.0); NEUTROPHILS # 8.5 10^3/uL (1.5-8.5); NEUTROPHILS % 74.5 % (36.0-66.0); PLATELET COUNT, AUTOMATED 267 10^3/uL (150-450); RED BLOOD COUNT 4.98 10^6/uL (4.00-5.40); WHITE BLOOD COUNT 11.4 10^3/uL (4.0-10.0)
[2019-10-23] MEDS ORDERED: AMPICILLIN SOD/SULBACTAM SOD 3 GM in D5W MINI-BAG PLUS 100 ML IV ONE (11:00)
[2019-10-23] MEDS ORDERED: LIDOCAINE 2% MDV 20ML VIAL SC ONE (11:00)
[2019-10-23] MEDS ORDERED: DESL1TAB3 PO (11:07)
[2019-10-23 11:18] LABS: ERYTHROCYTE SEDIMENTATION RATE 26 mm/hr (0-20)
[2019-10-23 11:19] LABS: BLOOD UREA NITROGEN 13 MG/DL (7-18); C REACTIVE PROTEIN QUANTITATIV 1.82 MG/DL (0.00-0.30); CALCIUM LEVEL 8.9 MG/DL (8.5-10.1); CARBON DIOXIDE LEVEL 25 MEQ/L (21-32); CHLORIDE LEVEL 105 MEQ/L (98-107); CREATININE FOR GFR 0.74 MG/DL (0.55-1.30); GLOMERULAR FILTRATION RATE > 60.0 (>58); GLUCOSE, FASTING 114 MG/DL (70-100); POTASSIUM SERUM 4.7 MEQ/L (3.5-5.1); SODIUM LEVEL 139 MEQ/L (136-145)
[2019-10-23] MEDS ORDERED: ALBUTEROL 90 MCG/ACT 8GM HFA INHALER INH PRN (13:15)
[2019-10-23] MEDS: TIOTROPIUM INHALER/CAPSULE (SPIRIVA) INH SCH (13:46)
[2019-10-23] MEDS: KETOROLAC 30 MG/ML 1ML VIAL IV PRN ×2 (15:10→21:48)
--- NOTE | 2019-10-23 15:25 | HPEPDOC ---
[facility] Medical History & Physical Date of Admission October 23, 2019 Date of Service: October 23, 2019 Primary Care Physician: Temitope Ontiveros Attending Physician: HEATEHR REA MD History and Physical CHIEF COMPLAINT: Dog bite HISTORY OF PRESENT ILLNESS: Jodie Cunningham is a 44-year-old female with history of asthma who presents to the ED today after eating bitten by her dogs last night. She has a wound on her right hand, right third digit and her left leg. She states that 2 of her dogs do not get along and she intervened last night while they were fighting, and tried to pull them off each other. She was bitten in the 2 separate places by the 2 separate dogs. She states that today her right fingers are numb and tingly and her left leg is very sore. She does report that she takes her dogs to the [employer] administrator regularly and her dogs are currently up-to-date on their vaccinations. They are both indoor dogs. PAST MEDICAL HISTORY: 1. Asthma 2. Gastroesophageal reflux disease 3. Thyroid disease 4. High cholesterol 5. Anxiety 6. PAULINA PAST SURGICAL HISTORY: 1. Hysterectomy and BSO 2. Appendectomy 3. Tubal ligation PERSONAL/SOCIAL HISTORY: Patient denies smoking, vocationally consumes alcohol. She denies recreational drug use REVIEW OF SYSTEMS: GENERAL: Denies chills, fatigue, fever, weight gain and weight loss. HEENT: Denies blurred vision and double vision. Denies ear symptoms. Denies hoarseness. NECK: Denies any neck pain. CARDIOVASCULAR: Denies chest pain and palpitations. MUSCULOSKELETAL: Denies arthralgias, back pain and thrombophlebitis. SKIN: Reports open wounds and right hand, right third digit and left leg. NEUROLOGIC: Denies headache, stroke and transient ischemic attack. PSYCHIATRIC: Denies anxiety and depression. ENDOCRINE: Denies thyroid disease. HEMATOLOGY/ONCOLOGY: Denies any bleeding or clotting disorder. HEART: Denies any chest pains, palpitations, paroxysmal dyspnea, orthopnea. PULMONARY: Denies chronic cough, dyspnea and wheezing. GASTROINTESTINAL: Denies rectal bleeding, family history of colon cancer, constipation, diarrhea, dysphagia, heartburn and jaundice. GENITOURINARY: Denies dysuria, frequency, hematuria and nocturia. ENDOCRINE: Denies polydipsia, polyphagia, polyuria, heat or cold intolerance. INFECTIOUS: Denies any recent upper respiratory tract infection, UTI, need for use of antibiotics. NUTRITION: Reports good appetite. HOME MEDICATIONS: Please see below. PHYSICAL EXAMINATION: VITAL SIGNS: Please see below. GENERAL APPEARANCE: Laying in bed, appears stated age, no acute distress, calm, cooperative HEENT: EOMI, PERRLA, neck is supple with no thyromegaly or lymphadenopathy RESPIRATORY: Lungs are clear to auscultation bilaterally with no adventitious breath sounds appreciated CARDIOVASCULAR: no JVD, RRR,no murmurs/rubs/gallops, normal S1 and S2 ABDOMEN: +BS, soft, nontender to palpation in all four quadrants, no masses/organomegaly EXTREMITIES: The right hand has a 8 cm circular wound on the anterior surface, a small bleeding wound on the third digit, and left lower horowitz has a 8-10 cm linear wound on anterior and medial surfaces NEUROLOGICAL: CN 2-12 intact, No obvious focal deficits PSYCHIATRIC: normal mood/affect Skin: No rashes or ulcers appreciated, warm and well-perfused LN: No significant cervical or inguinal lymphadenopathy LABORATORY DATA: See below. IMAGING: R HAND XR: Right hand series: Four views. History: Injury. Findings: Four views of the right hand show overall normal mineralization. There is dorsal soft tissue swelling over the metacarpals. No fracture or opaque foreign body is seen. No subluxation noted. Impression: Dorsal metacarpal soft tissue swelling. No fracture or other acute abnormality seen. MICROBIOLOGY: Please see below. ASSESSMENT: This is a 44-year-old female with history of GERD and asthma who presents after dog bite on right hand and left leg. She was seen by orthopedic surgery in the emergency room and will be admitted for close observation. . PLAN: 1. Dog bite wound: -Wound explored by ED PA and debrided with saline. S/p 1 dose of Unasyn in ED -Tetanus shot given in ED. -Will start patient on oral Augmentin for total 7 days -IV Toradol for pain -Continue wound care with dry sterile dressing -Per orthopaedic surgery (Irma) will monitor closely for abscess formation and will get MRI if necessary. Appreciate further recommendations 2. History of Asthma: -Continue home Spiriva inhaler, Singulair, Claritin, Albuterol inhaler DVT ppx: none at this time, patient is mobile and wounds are actively bleeding Attending attestation: I evaluated and examined the patient in person; I discussed the care with Resident in detail and agree with the plan above. Vital Signs Vital Signs Date Time Temp Pulse Resp B/P (MAP) Pulse Ox O2 Delivery O2 Flow Rate FiO2 10/23/19 09:50 10/23/19 09:20 97.8 94 22 98 Room Air Laboratory Data Labs 24H Laboratory Tests 2 10/23/19 10:29: Immature Granulocyte % (Auto) 0.3, Neutrophils (%) (Auto) 74.5H, Lymphocytes (%) (Auto) 16.9L, Monocytes (%) (Auto) 7.6H, Eosinophils (%) (Auto) 0.3, Basophils (%) (Auto) 0.4, Neutrophils # (Auto) 8.5, Lymphocytes # (Auto) 1.9, Monocytes # (Auto) 0.9H, Eosinophils # (Auto) 0.0, Basophils # (Auto) 0.1, Nucleated Red Blood Cells % (auto) 0.0, Erythrocyte Sedimentation Rate 26H, Anion Gap 9, Glomerular Filtration Rate > 60.0, Calcium Level 8.9, C-Reactive Protein, Quantitative 1.82H CBC/BMP Laboratory Tests 10/23/19 10:29 Microbiology Microbiology 10/23/19 Blood Culture, Received Pending 10/23/19 Blood Culture, Received Pending Home Medications Scheduled Desloratadine (Desloratadine) 5 Mg Tablet, 5 MG PO BID Montelukast Sodium (Montelukast Sodium) 10 Mg Tab, 10 MG PO QHS Tiotropium [place] (Spiriva Respimat) 4 Gm Mist.inhal, 2 PUFF INH DAILY Scheduled PRN Albuterol Sulfate (Ventolin Hfa) 108 Mcg/Act Aer, 2 PUFF INH QID PRN for SHORTNESS OF BREATH Allergies Coded Allergies: morphine (Verified Adverse Reaction, Mild, Nausea, Vomiting, Heartburn, 10/24/19) A-FIB/CHADSVASC A-FIB History Current/History of A-Fib/PAF?: No GME ATTESTATION GME ATTESTATION My faculty preceptor for this patient encounter was physically present during the encounter and was fully available. All aspects of the patient interview, examination, medical decision making process, and medical care plan development were reviewed and approved by the faculty preceptor. The faculty preceptor is aware and concurs with the plan as stated in the body of this note and will attest to such by his/her cosignature. PJ BUTT MD October 23, 2019 13:05 HEATHER REA MD October 24, 2019 19:52
[2019-10-23] MEDS ORDERED: MORPHINE 2 MG/ML 1ML VIAL (J2270) IV PRN (16:45)
[2019-10-23] MEDS: PANTOPRAZOLE 40MG VIAL (C9113 PER 1) IV SCH (17:40)
[2019-10-23] MEDS ORDERED: diphenhydrAMINE 50MG/ML VIAL (J1200) IV PRN (17:45)
[2019-10-23] MEDS ORDERED: ONDANSETRON 4MG/2ML VIAL IV PRN (17:45)
[2019-10-23 18:04] VITALS: BP 144/80
[2019-10-23] MEDS: MONTELUKAST 10 MG TAB PO SCH (20:50)
[2019-10-23] MEDS: LORATADINE 5 MG HALF-TAB PO SCH (20:50)
[2019-10-23] MEDS ORDERED: AUGMENTIN 875 MG TAB PO SCH (21:00)
[2019-10-23 22:00] VITALS: BP 119/74
--- NOTE | 2019-10-23 23:53 | ECGEPIP ---
[facility] Test Date: 2019-10-23 Pat Name: WILBERTO TORRES Department: Room: M6846-39 Gender: Female Film Or Videotape Editor: DAVI : 1975 Requested By: PJ BUTT Order Number: [id number] Reading MD: Marino Heath Measurements Intervals [place] Rate: 83 P: -20 NE: 137 QRS: 17 QRSD: 84 T: 1 QT: 370 QTc: 437 Interpretive Statements SINUS RHYTHM Non specific ST/T abnormality Compared to prior tracings(2) in the system, no significant changes Electronically Signed on 10-23-2019 23:52:56 EDT by Marino Heath
[2019-10-24] MEDS ORDERED: ACETAMINOPHEN TAB 650MG DOSE (2X325MG) PO ONE (02:30)
[2019-10-24] MEDS: KETOROLAC 30 MG/ML 1ML VIAL IV PRN ×3 (03:57→20:19)
[2019-10-24 06:00] VITALS: BP 115/72
[2019-10-24 06:50] LABS: ALBUMIN 3.2 GM/DL (3.2-5.2); ALT/SGPT 201 U/L (12-78); BILIRUBIN,TOTAL 0.5 MG/DL (0.2-1.0); BLOOD UREA NITROGEN 20 MG/DL (7-18); CALCIUM LEVEL 8.4 MG/DL (8.5-10.1); CARBON DIOXIDE LEVEL 29 MEQ/L (21-32); CHLORIDE LEVEL 107 MEQ/L (98-107); CREATININE FOR GFR 0.81 MG/DL (0.55-1.30); GLOMERULAR FILTRATION RATE > 60.0 (>58); GLUCOSE, FASTING 112 MG/DL (70-100); MAGNESIUM LEVEL 2.4 MG/DL (1.8-2.4); POTASSIUM SERUM 3.8 MEQ/L (3.5-5.1); SODIUM LEVEL 141 MEQ/L (136-145); TOTAL PROTEIN 6.4 GM/DL (6.4-8.2)
[2019-10-24] MEDS: TIOTROPIUM INHALER/CAPSULE (SPIRIVA) INH SCH (07:19)
[2019-10-24] MEDS: LORATADINE 5 MG HALF-TAB PO SCH ×2 (08:54→20:19)
[2019-10-24] MEDS: AMPICILLIN SOD/SULBACTAM SOD 3 GM in D5W MINI-BAG PLUS 100 ML IV SCH ×3 (08:54→20:19)
--- NOTE | 2019-10-24 12:17 | REP ---
RIGHT UPPER QUADRANT ULTRASOUND: Real-time sonographic evaluation of the right upper quadrant performed. The patient has had a prior cholecystectomy. There is no intrahepatic or extrahepatic biliary dilatation, the common bile duct measuring 4 mm. The liver and pancreas demonstrate no gross mass. The pancreas is not optimally seen due to overlying bowel gas. Right kidney demonstrates no hydronephrosis or nephrolithiasis, normal size 10.5 cm in length. There is no ascites. IMPRESSION: Status post cholecystectomy. Otherwise negative right upper quadrant ultrasound. Electronically Signed by David Salinas MD 10/24/2019 12:19 P
--- NOTE | 2019-10-24 12:51 | IPNPDOC ---
Date Seen The patient was seen on 10/24/19. Progress Note SUBJECTIVE: The patient had an issue with pain yesterday, and bad reaction to morphine yesterday afternoon. Medication has been added to allergy list. She reports continued soreness in her left leg with shooting pains when she walks. Her R hand is currently in a sling hanging off the IV pole. She reports her pain is better managed. The findings of transaminitis were discussed with her. She does report chronic abdominal pain and extensive workup consisting of 2 colonoscopies in the near past. She has not recently had any nausea/vomiting. Otherwise, no complaints. OBJECTIVE: PHYSICAL EXAMINATION: VITAL SIGNS: Please see below. GENERAL APPEARANCE: Laying in bed, appears stated age, no acute distress, calm, cooperative HEENT: EOMI, PERRLA, neck is supple with no thyromegaly or lymphadenopathy RESPIRATORY: Lungs are clear to auscultation bilaterally with no adventitious breath sounds appreciated CARDIOVASCULAR: no JVD, RRR,no murmurs/rubs/gallops, normal S1 and S2 ABDOMEN: +BS, soft, nontender to palpation in all four quadrants, no masses/organomegaly EXTREMITIES: The right hand has a 8 cm circular wound on the anterior surface, and left lower horowitz has a 8-10 cm linear wound on anterior and medial surfaces NEUROLOGICAL: CN 2-12 intact, No obvious focal deficits PSYCHIATRIC: normal mood/affect Skin: No rashes or ulcers appreciated, warm and well-perfused LN: No significant cervical or inguinal lymphadenopathy LABORATORY DATA: See below. IMAGING: R HAND XR: Right hand series: Four views. History: Injury. Findings: Four views of the right hand show overall normal mineralization. There is dorsal soft tissue swelling over the metacarpals. No fracture or opaque foreign body is seen. No subluxation noted. Impression: Dorsal metacarpal soft tissue swelling. No fracture or other acute abnormality seen. RIGHT UPPER QUADRANT ULTRASOUND: Real-time sonographic evaluation of the right upper quadrant performed. The patient has had a prior cholecystectomy. There is no intrahepatic or extrahepatic biliary dilatation, the common bile duct measuring 4 mm. The liver and pancreas demonstrate no gross mass. The pancreas is not optimally seen due to overlying bowel gas. Right kidney demonstrates no hydronephrosis or nephrolithiasis, normal size 10.5 cm in length. There is no ascites. IMPRESSION: Status post cholecystectomy. Otherwise negative right upper quadrant ultrasound. MICROBIOLOGY: Please see below. ASSESSMENT: This is a 44-year-old female with history of GERD and asthma who presents after dog bite on right hand and left leg. She is being followed by orthopaedic surgery and is on IV antibiotics. . PLAN: 1. Dog bite wound: -Wound explored by ED PA and debrided with saline. S/p 1 dose of Unasyn in ED -Tetanus shot given in ED. -Oral Augmentin switched to IV Unasyn -IV Toradol for pain -Continue wound care with dry sterile dressing -Per orthopaedic surgery (Irma) will monitor closely for abscess formation and will get MRI if necessary. Appreciate further recommendations 2. History of Asthma: -Continue home Spiriva inhaler, Singulair, Claritin, Albuterol inhaler DVT ppx: TEDs/SCDs Attending attestation: I evaluated and examined the patient in person; I discussed the care with Resident in detail and agree with the plan above. VS, I&O, 24H, Fishbone Vital Signs/I&O Vital Signs Date Time Temp Pulse Resp B/P (MAP) Pulse Ox O2 Delivery O2 Flow Rate FiO2 10/24/19 06:00 98.1 80 17 115/72 (86) 99 Room Air I&O- Last 24 Hours up to 6 AM 10/24/19 06:00 Intake Total 900 ml Output Total 1150 ml Balance -250 ml Laboratory Data 24H LABS Laboratory Tests 2 10/24/19 06:08: Anion Gap 5L, Glomerular Filtration Rate > 60.0, Calcium Level 8.4L, Magnesium Level 2.4, Total Bilirubin 0.5, Aspartate Amino Transf (AST/SGOT) 181H, Alanine Aminotransferase (ALT/SGPT) 201H, Alkaline Phosphatase 117, Total Protein 6.4, Albumin 3.2, Albumin/Globulin Ratio 1.00 CBC/BMP Laboratory Tests 10/24/19 06:08 Microbiology Microbiology 10/23/19 Blood Culture - Preliminary, Resulted No growth after 24 hours . All specim... 10/23/19 Blood Culture - Preliminary, Resulted No growth after 24 hours . All specim... GME ATTESTATION GME ATTESTATION My faculty preceptor for this patient encounter was physically present during the encounter and was fully available. All aspects of the patient interview, e xamination, medical decision making process, and medical care plan development were reviewed and approved by the faculty preceptor. The faculty preceptor is aware and concurs with the plan as stated in the body of this note and will attest to such by his/her cosignature. PJ BUTT MD October 24, 2019 12:51 HEATHER REA MD October 24, 2019 20:06
[2019-10-24 14:00] VITALS: BP 116/74
[2019-10-24] MEDS ORDERED: ACETAMINOPH W/CODEINE #3 TAB UD PO PRN (14:30)
[2019-10-24] MEDS ORDERED: ACETAMINOPHEN TAB 650MG DOSE (2X325MG) PO PRN (14:45)
[2019-10-24] MEDS: PANTOPRAZOLE 40MG VIAL (C9113 PER 1) IV SCH (18:11)
[2019-10-24] MEDS: MONTELUKAST 10 MG TAB PO SCH (20:19)
[2019-10-24 22:00] VITALS: BP 109/64
[2019-10-25] MEDS: AMPICILLIN SOD/SULBACTAM SOD 3 GM in D5W MINI-BAG PLUS 100 ML IV SCH ×4 (02:13→19:57)
[2019-10-25] MEDS: KETOROLAC 30 MG/ML 1ML VIAL IV PRN (04:17)
[2019-10-25 06:00] VITALS: BP 108/61
[2019-10-25 06:55] LABS: HEMATOCRIT 37.4 % (36.0-47.0); MEAN CORPUSCULAR HEMOGLOBIN 29.5 pg (27.0-33.0); MEAN CORPUSCULAR HGB CONC 33.4 g/dl (32.0-36.5); MEAN CORPUSCULAR VOLUME 88.2 fl (80.0-96.0); PLATELET COUNT, AUTOMATED 198 10^3/uL (150-450); RED BLOOD COUNT 4.24 10^6/uL (4.00-5.40)
[2019-10-25 07:06] LABS: HEMOGLOBIN 12.5 g/dl (12.0-15.5)
[2019-10-25 07:18] LABS: ALBUMIN 2.9 GM/DL (3.2-5.2); ALT/SGPT 121 U/L (12-78); BILIRUBIN,TOTAL 0.3 MG/DL (0.2-1.0); BLOOD UREA NITROGEN 13 MG/DL (7-18); C REACTIVE PROTEIN QUANTITATIV 4.39 MG/DL (0.00-0.30); CALCIUM LEVEL 8.2 MG/DL (8.5-10.1); CARBON DIOXIDE LEVEL 29 MEQ/L (21-32); CHLORIDE LEVEL 107 MEQ/L (98-107); CREATININE FOR GFR 0.74 MG/DL (0.55-1.30); GLOMERULAR FILTRATION RATE > 60.0 (>58); GLUCOSE, FASTING 107 MG/DL (70-100); POTASSIUM SERUM 4.2 MEQ/L (3.5-5.1); SODIUM LEVEL 142 MEQ/L (136-145); TOTAL PROTEIN 5.8 GM/DL (6.4-8.2)
[2019-10-25] MEDS: TIOTROPIUM INHALER/CAPSULE (SPIRIVA) INH SCH (07:18)
[2019-10-25] MEDS: LORATADINE 5 MG HALF-TAB PO SCH ×2 (08:26→19:57)
[2019-10-25] MEDS: PERCOCET 5MG/325MG TAB PO PRN ×3 (08:27→21:28)
[2019-10-25] MEDS: PANTOPRAZOLE 40MG TAB (PROTONIX) PO SCH (09:58)
[2019-10-25 10:03] LABS: HEPATITIS B SURFACE ANTIGEN NEGATIVE (NEGATIVE)
[2019-10-25 10:29] LABS: HEPATITIS B CORE ANTIBODY IGM NEGATIVE (NEGATIVE)
[2019-10-25 10:32] LABS: HEPATITIS A ANTIBODY IGM NEGATIVE (NEGATIVE)
--- NOTE | 2019-10-25 11:57 | IPN ---
DATE: 10/24/2019 CHIEF COMPLAINT: Right hand dog bite. HISTORY OF PRESENT ILLNESS: Jodie Cunningham is a 41-year-old female who sustained a laceration to her right hand following a dog bite on Wednesday. Patient was seen in the emergency room yesterday and consult was performed by Dr. Jose. It was recommended for IV antibiotics and admission with strict elevation from IV pole. Patient states she is still having a fair amount of pain and swelling. It is primarily in the dorsum of her hand and her long finger. It appears she only was put on by mouth antibiotics but did receive one dose of IV Unasyn while in the emergency room. She has been afebrile. PHYSICAL EXAMINATION: Vital signs: Temperature 98.1, pulse 80, respiratory rate 17, blood pressure 115/72, pulse ox 99% on room air. General: Well appearing in no acute distress. Pulmonary: Regular, no abnormal breathing. Cardiovascular: Regular radial pulse in the right. Musculoskeletal: There is a mild serosanguineous drainage on the patient's dressing mainly from the dorsal lacerations. There is mild to moderate swelling in this area as well, however, there is no erythema or palpable abscess. There is mild swelling of the long finger and a laceration over the dorsum of the finger in the proximity of the DIP joint and along the distal phalanx. Patient has normal sensation to light touch in the medial ulnoradial distribution. She can actively flex and extend her fingers. LABS: CBC and CRP are not yet available for today. IMPRESSION: Right hand dog bite without any significant improvement. PLAN: I would discontinue by mouth antibiotics and put the patient on IV Unasyn. This will be ordered by our nurse practitioner. I do think this is necessary that she is on IV antibiotics for at least a day or two for this to calm down. She needs to continue strict elevation from the IV pole. I would also check a daily CBC and CRP so that we can trend these. Will see the patient in the morning to monitor her progress.
[2019-10-25 14:00] VITALS: BP 112/64
--- NOTE | 2019-10-25 18:45 | IPNPDOC ---
Date Seen The patient was seen on 10/25/19. Progress Note SUBJECTIVE: The patient reports that her pain is better managed today. She is able to move her fingers on her right hand and they feel much less tingly. Her leg is still sore with pain shooting up when she walks, but otherwise she feels better than when she came in. No other issues reported overnight. She denies any nausea/vomiting/diarrhea/abdominal pain at this time. OBJECTIVE: PHYSICAL EXAMINATION: VITAL SIGNS: Please see below. GENERAL APPEARANCE: Laying in bed, appears stated age, no acute distress, calm, cooperative HEENT: EOMI, PERRLA, neck is supple with no thyromegaly or lymphadenopathy RESPIRATORY: Lungs are clear to auscultation bilaterally with no adventitious breath sounds appreciated CARDIOVASCULAR: no JVD, RRR,no murmurs/rubs/gallops, normal S1 and S2 ABDOMEN: +BS, soft, nontender to palpation in all four quadrants, no masses/organomegaly EXTREMITIES: The right hand has a 8 cm circular wound on the anterior surface, and left lower horowitz has a 8-10 cm linear wound on anterior and medial surfaces NEUROLOGICAL: CN 2-12 intact, No obvious focal deficits PSYCHIATRIC: normal mood/affect Skin: No rashes or ulcers appreciated, warm and well-perfused LN: No significant cervical or inguinal lymphadenopathy LABORATORY DATA: See below. IMAGING: R HAND XR: Right hand series: Four views. History: Injury. Findings: Four views of the right hand show overall normal mineralization. There is dorsal soft tissue swelling over the metacarpals. No fracture or opaque foreign body is seen. No subluxation noted. Impression: Dorsal metacarpal soft tissue swelling. No fracture or other acute abnormality seen. RIGHT UPPER QUADRANT ULTRASOUND: Real-time sonographic evaluation of the right upper quadrant performed. The patient has had a prior cholecystectomy. There is no intrahepatic or extrahepatic biliary dilatation, the common bile duct measuring 4 mm. The liver and pancreas demonstrate no gross mass. The pancreas is not optimally seen due to overlying bowel gas. Right kidney demonstrates no hydronephrosis or nephrolithiasis, normal size 10.5 cm in length. There is no ascites. IMPRESSION: Status post cholecystectomy. Otherwise negative right upper quadrant ultrasound. MICROBIOLOGY: Please see below. ASSESSMENT: This is a 44-year-old female with history of GERD and asthma who presents after dog bite on right hand and left leg. She is being followed by orthopaedic surgery and is on IV antibiotics. . PLAN: 1. Dog bite wound: -Continue IV Unasyn -Toradol stopped, continue pain management with Percocet -Continue wound care with dry sterile dressing -Per orthopaedic surgery (Irma) will monitor closely for abscess formation and will get MRI if necessary. Appreciate further recommendations 2. History of Asthma: -Continue home Spiriva inhaler, Singulair, Claritin, Albuterol inhaler DVT ppx: TEDs/SCDs Attending attestation: I evaluated and examined the patient in person; I discussed the care with Resident in detail and agree with the plan above. VS, I&O, 24H, Fishbone Vital Signs/I&O Vital Signs Date Time Temp Pulse Resp B/P (MAP) Pulse Ox O2 Delivery O2 Flow Rate FiO2 10/25/19 15:30 16 Room Air 10/25/19 14:00 98.6 80 112/64 (80) 98 I&O- Last 24 Hours up to 6 AM 10/25/19 06:00 Intake Total 2420 ml Output Total 1400 ml Balance 1020 ml Laboratory Data 24H LABS Laboratory Tests 2 10/25/19 05:43: Nucleated Red Blood Cells % (auto) 0.0, Anion Gap 6L, Glomerular Filtration Rate > 60.0, Calcium Level 8.2L, Total Bilirubin 0.3, Aspartate Amino Transf (AST/SGO T) 58H, Alanine Aminotransferase (ALT/SGPT) 121H, Alkaline Phosphatase 97, C- Reactive Protein, Quantitative 4.39H, Total Protein 5.8L, Albumin 2.9L, Albumin/Globulin Ratio 1.00 CBC/BMP Laboratory Tests 10/25/19 05:43 Microbiology Microbiology 10/23/19 Blood Culture - Preliminary, Resulted No Growth after 48 hours. All Specime... 10/23/19 Blood Culture - Preliminary, Resulted No Growth after 48 hours. All Specime... GME ATTESTATION GME ATTESTATION My faculty preceptor for this patient encounter was physically present during the encounter and was fully available. All aspects of the patient interview, e xamination, medical decision making process, and medical care plan development were reviewed and approved by the faculty preceptor. The faculty preceptor is aware and concurs with the plan as stated in the body of this note and will attest to such by his/her cosignature. PJ BUTT MD October 25, 2019 18:45 HEATHER REA MD October 27, 2019 16:15
[2019-10-25] MEDS: MONTELUKAST 10 MG TAB PO SCH (19:57)
[2019-10-25 22:00] VITALS: BP 118/56
[2019-10-26] MEDS: AMPICILLIN SOD/SULBACTAM SOD 3 GM in D5W MINI-BAG PLUS 100 ML IV SCH ×2 (02:15→08:22)
[2019-10-26 06:00] VITALS: BP 122/55
[2019-10-26 06:25] LABS: HEMATOCRIT 36.6 % (36.0-47.0); HEMOGLOBIN 12.3 g/dl (12.0-15.5); MEAN CORPUSCULAR HEMOGLOBIN 29.5 pg (27.0-33.0); MEAN CORPUSCULAR HGB CONC 33.6 g/dl (32.0-36.5); MEAN CORPUSCULAR VOLUME 87.8 fl (80.0-96.0); PLATELET COUNT, AUTOMATED 206 10^3/uL (150-450); RED BLOOD COUNT 4.17 10^6/uL (4.00-5.40); WHITE BLOOD COUNT 6.3 10^3/uL (4.0-10.0)
[2019-10-26 06:46] LABS: ALBUMIN 2.9 GM/DL (3.2-5.2); ALT/SGPT 110 U/L (12-78); BILIRUBIN,TOTAL 0.2 MG/DL (0.2-1.0); BLOOD UREA NITROGEN 11 MG/DL (7-18); C REACTIVE PROTEIN QUANTITATIV 2.86 MG/DL (0.00-0.30); CALCIUM LEVEL 8.1 MG/DL (8.5-10.1); CARBON DIOXIDE LEVEL 26 MEQ/L (21-32); CHLORIDE LEVEL 110 MEQ/L (98-107); CREATININE FOR GFR 0.71 MG/DL (0.55-1.30); GLOMERULAR FILTRATION RATE > 60.0 (>58); GLUCOSE, FASTING 96 MG/DL (70-100); POTASSIUM SERUM 4.3 MEQ/L (3.5-5.1); SODIUM LEVEL 142 MEQ/L (136-145)
[2019-10-26] MEDS: TIOTROPIUM INHALER/CAPSULE (SPIRIVA) INH SCH (07:16)
[2019-10-26] MEDS: LORATADINE 5 MG HALF-TAB PO SCH (08:22)
[2019-10-26] MEDS: PANTOPRAZOLE 40MG TAB (PROTONIX) PO SCH (08:22)
[2019-10-26] MEDS ORDERED: PERCOCET PO (11:21)
[2019-10-26] MEDS ORDERED: AMOX875T2 PO (11:21)
--- NOTE | 2019-10-26 15:02 | DS.PDOC ---
Discharge Summary General Date of Admission October 23, 2019 at 12:36 Date of Discharge October 26, 2019 Primary Care Physician: Temitope Ontiveros Attending Physician: HEATHER REA MD Specialist/Consultants Involve: BETTY COUCH MD Discharge Summary PROCEDURES PERFORMED DURING STAY: [None]. ADMITTING DIAGNOSES: 1. Dog Bite Wound DISCHARGE DIAGNOSES: 1. Dog Bite Wound COMPLICATIONS/CHIEF COMPLAINT: Dog Bite. HISTORY OF PRESENT ILLNESS: Jodie Cunningham is a 44-year-old female with history of asthma who presents to the ED today after eating bitten by her dogs last night. She has a wound on her right hand, right third digit and her left leg. She states that 2 of her dogs do not get along and she intervened last night while they were fighting, and tried to pull them off each other. She was bitten in the 2 separate places by the 2 separate dogs. She states that today her right fingers are numb and tingly and her left leg is very sore. She does report that she takes her dogs to the [employer] systems [employer] regularly and her dogs are currently up-to-date on their vaccinations. They are both indoor dogs. HOSPITAL COURSE: The patient was admitted for observation of dog bite wounds for concern for abscess formation. She was seen by Orthopaedic surgery who recommended IV Unasyn and trend of CRP. The patient's arm was continually elevated upright to decrease swelling. Her pain was initally treated with IV Toradol and subsequently switched to oral percocet. She was found to have transaminitis, which slowly trended down during hospitalization, but Liver US and hepatitis panel were both found to be negative. She was discharged home on PO Augmentin x 5 days and will follow up with Orthopaedic surgery in 1 week. DISCHARGE MEDICATIONS: Please see below. ALLERGIES: Please see below. PHYSICAL EXAMINATION ON DISCHARGE: VITAL SIGNS: Please see below. GENERAL APPEARANCE: Laying in bed, appears stated age, no acute distress, calm, cooperative HEENT: EOMI, PERRLA, neck is supple with no thyromegaly or lymphadenopathy RESPIRATORY: Lungs are clear to auscultation bilaterally with no adventitious breath sounds appreciated CARDIOVASCULAR: no JVD, RRR,no murmurs/rubs/gallops, normal S1 and S2 ABDOMEN: +BS, soft, nontender to palpation in all four quadrants, no masses/organomegaly EXTREMITIES: The right hand has a 8 cm circular wound on the anterior surface, and left lower horowitz has a 8-10 cm linear wound on anterior and medial surfaces NEUROLOGICAL: CN 2-12 intact, No obvious focal deficits PSYCHIATRIC: normal mood/affect Skin: No rashes or ulcers appreciated, warm and well-perfused LN: No significant cervical or inguinal lymphadenopathy LABORATORY DATA: See below. LABORATORY DATA: Please see below. IMAGING: RIGHT UPPER QUADRANT ULTRASOUND: Real-time sonographic evaluation of the right upper quadrant performed. The patient has had a prior cholecystectomy. There is no intrahepatic or extrahepatic biliary dilatation, the common bile duct measuring 4 mm. The liver and pancreas demonstrate no gross mass. The pancreas is not optimally seen due to overlying bowel gas. Right kidney demonstrates no hydronephrosis or nephrolithiasis, normal size 10.5 cm in length. There is no ascites. IMPRESSION: Status post cholecystectomy. Otherwise negative right upper quadrant ultrasound. Right hand series: Four views. History: Injury. Findings: Four views of the right hand show overall normal mineralization. There is dorsal soft tissue swelling over the metacarpals. No fracture or opaque foreign body is seen. No subluxation noted. Impression: Dorsal metacarpal soft tissue swelling. No fracture or other acute abnormality seen. PROGNOSIS: fair ACTIVITY: [As tolerated]. DIET: regular DISCHARGE PLAN: home DISPOSITION: 01 Home, Self-Care. DISCHARGE INSTRUCTIONS: 1. Follow up with Orthopaedics in 1 week ITEMS TO FOLLOWUP ON ON OUTPATIENT: none DISCHARGE CONDITION: [Stable]. TIME SPENT ON DISCHARGE: Greater than 35 minutes. Attending attestation: I evaluated and examined the patient in person; I discussed the care with Resident in detail and agree with the plan above. Vital Signs/I&Os Vital Signs Date Time Temp Pulse Resp B/P (MAP) Pulse Ox O2 Delivery O2 Flow Rate FiO2 10/26/19 06:00 97.6 66 18 122/55 (77) 100 10/25/19 21:58 Room Air I&O- Last 24 Hours up to 6 AM 10/26/19 06:00 Intake Total 1750 ml Output Total 1750 ml Balance 0 ml Laboratory Data Labs 24H Laboratory Tests 2 10/26/19 05:51: Nucleated Red Blood Cells % (auto) 0.0, Anion Gap 6L, Glomerular Filtration Rate > 60.0, Calcium Level 8.1L, Total Bilirubin 0.2, Aspartate Amino Transf (AST/SGOT) 60H, Alanine Aminotransferase (ALT/SGPT) 110H, Alkaline Phosphatase 92, C-Reactive Protein, Quantitative 2.86H, Total Protein 6.0L, Albumin 2.9L, Albumin/Globulin Ratio 0.94L CBC/BMP Laboratory Tests 10/26/19 05:51 Microbiology Microbiology 10/23/19 Blood Culture - Preliminary, Resulted No Growth after 72 hours. All specime... 10/23/19 Blood Culture - Preliminary, Resulted No Growth after 72 hours. All specime... Discharge Medications Scheduled Amoxicillin/Potassium Clav (Amox-Clav 875-125 mg Tablet) 1 Each Tablet, 875 MG PO BID Desloratadine (Desloratadine) 5 Mg Tablet, 5 MG PO BID, (Reported) Montelukast Sodium (Montelukast Sodium) 10 Mg Tab, 10 MG PO QHS, (Reported) Tiotropium [place] (Spiriva Respimat) 4 Gm Mist.inhal, 2 PUFF INH DAILY, (Reported) Scheduled PRN Albuterol Sulfate (Ventolin Hfa) 108 Mcg/Act Aer, 2 PUFF INH QID PRN for SHORTNESS OF BREATH, (Reported) Oxycodone/Acetaminophen (Oxycodone-Acetaminophen 5-325) 1 Each Tablet, 1 TAB PO Q6HP PRN for PAIN OR FEVER Allergies Coded Allergies: morphine (Verified Adverse Reaction, Mild, Nausea, Vomiting, Heartburn, 10/24/19) GME ATTESTATION GME ATTESTATION My faculty preceptor for this patient encounter was physically present during the encounter and was fully available. All aspects of the patient interview, examination, medical decision making process, and medical care plan development were reviewed and approved by the faculty preceptor. The faculty preceptor is aware and concurs with the plan as stated in the body of this note and will attest to such by his/her cosignature. PJ BUTT MD October 26, 2019 14:36 HEATHER REA MD October 27, 2019 16:23
== END 2019-10-26 13:07 | disposition home or self-care (01) | DRG 384 ==
LOC: M ED 09:19 → M ED INP 12:36 → ENRESERV 12:50 → M MSPAV 14:30
PROVIDERS: ADMIT Internal Medicine; ATTEND Internal Medicine
DX: S61.252A Open bite of right middle finger without damage to nail, initial encounter (principal); S81.852A Open bite, left lower leg, initial encounter; E07.9 Disorder of thyroid, unspecified; W54.0XXA Bitten by dog, initial encounter; Y92.009 Unspecified place in unspecified non-institutional (private) residence as the place of occurrence of the external cause; J45.909 Unspecified asthma, uncomplicated; K21.9 Gastro-esophageal reflux disease without esophagitis; E78.00 Pure hypercholesterolemia, unspecified; M79.89 Other specified soft tissue disorders; F41.9 Anxiety disorder, unspecified; G47.33 Obstructive sleep apnea (adult) (pediatric); Z90.49 Acquired absence of other specified parts of digestive tract; R74.0 Nonspecific elevation of levels of transaminase and lactic acid dehydrogenase [LDH]; Y99.8 Other external cause status; T40.2X5A Adverse effect of other opioids, initial encounter; Y93.K9 Activity, other involving animal care

== ENCOUNTER 2021-06-07 19:49 | Emergency (ER) | payer BC ==
[~2021-06-07] VITALS: Ht 160 cm; Wt 84.5 kg
[~2021-06-07 19:49] MED LIST changes: +AMOX875T2 PO; +BUPR150T12 PO; -BUPR150T3 PO; +DESL1TAB3 PO; +MONT10TA10 PO; -MONT10TA4 PO; +OMEP40CA4 PO; -OMEP40CA97 PO; +PERCOCET PO
[2021-06-07] MEDS ORDERED: LIDOCAINE 2% MDV 20ML VIAL SC ONE (22:15)
[2021-06-07] MEDS ORDERED: BACITRACIN OINTMENT 30GM TUBE TOP ONE (22:15)
[2021-06-07] MEDS ORDERED: CEPH500C PO (22:35)
[2021-06-07] MEDS ORDERED: HYDR-3713 PO (22:35)
[2021-06-07 22:40] VITALS: BP 122/69
[2021-06-07] MEDS ORDERED: NORCO 5/325MG TABLET (BULK FOR ED) PO ONE (22:40)
--- NOTE | 2021-06-07 22:43 | REPVR ---
PROCEDURE INFORMATION: Exam: XR Right Wrist Exam date and time: 06/07/2021 8:55 PM Age: 46 years old Clinical indication: Pain; Hand and wrist; Right; Additional info: Trauma TECHNIQUE: Imaging protocol: XR Right wrist. Views: 3 or more views. COMPARISON: 1. CR Hand, complete 2019-10-23 10:03 2. CR Elbow, complete 2019-07-04 15:59 FINDINGS: Bones/joints: Normal. Soft tissues: Normal. IMPRESSION: No acute findings. Electronically signed by: Jeet Nguyen On 06/07/2021 22:42:42 PM
[2021-06-07] MEDS ORDERED: CEPHALEXIN 500 MG CAP PO ONE (22:45)
--- NOTE | 2021-06-07 22:48 | REPVR ---
PROCEDURE INFORMATION: Exam: XR Right Hand Exam date and time: 06/07/2021 8:55 PM Age: 46 years old Clinical indication: Pain; Hand and wrist; Right; Additional info: Trauma TECHNIQUE: Imaging protocol: XR Right hand. Views: 3 or more views. COMPARISON: 1. CR Hand, complete 2019-10-23 10:03 2. CR Elbow, complete 2019-07-04 15:59 FINDINGS: Tubes, catheters and devices: Overlying gauze limits evaluation. Bones/joints: No acute fracture or dislocation. Soft tissues: Soft tissue swelling. IMPRESSION: No acute osseous abnormality. Electronically signed by: Jeet Nguyen On 06/07/2021 22:48:34 PM
== END 2021-06-07 22:52 | disposition home or self-care (01) ==
LOC: M ED 19:49
DX: S61.421A Laceration with foreign body of right hand, initial encounter (principal); W19.XXXA Unspecified fall, initial encounter; Y92.009 Unspecified place in unspecified non-institutional (private) residence as the place of occurrence of the external cause; Y93.9 Activity, unspecified; Y99.9 Unspecified external cause status; I10 Essential (primary) hypertension; Z79.899 Other long term (current) drug therapy; Z88.5 Allergy status to narcotic agent

== ENCOUNTER 2021-08-08 15:54 | Emergency (ER) | payer BC ==
[~2021-08-08] VITALS: Ht 160 cm; Wt 80.3 kg
[~2021-08-08 15:54] MED LIST changes: +CEPH500C PO; +HYDR-3713 PO; -MONT10TA10 PO; +MONT10TA97 PO
[2021-08-08] MEDS ORDERED: ACETAMINOPHEN 500 MG TAB PO ONE (21:35)
[2021-08-08] MEDS ORDERED: KETOROLAC TROMETHAMINE 10 MG TAB PO ONE (21:35)
[2021-08-08] MEDS ORDERED: ONDANSETRON 4 MG ORAL DISINTEGRATING TAB PO ONE (21:35)
[2021-08-08 22:12] VITALS: BP 119/69
[2021-08-08] MEDS ORDERED: PROMETHAZINE 25 MG TAB PO ONE (23:10)
[2021-08-09] MEDS ORDERED: ONDA4TAB6 PO (01:10)
[2021-08-10] MEDS ORDERED: ONDA4TAB6 PO (20:12)
[2021-08-10] MEDS ORDERED: PROC10TA5 PO (20:12)
== END 2021-08-09 01:42 | disposition home or self-care (01) ==
LOC: M ED 15:54
DX: U07.1 COVID-19 (principal); J45.909 Unspecified asthma, uncomplicated; K21.9 Gastro-esophageal reflux disease without esophagitis; R51.9 Headache, unspecified; E78.5 Hyperlipidemia, unspecified; F41.9 Anxiety disorder, unspecified; F32.A Depression, unspecified; Z88.6 Allergy status to analgesic agent; Z79.899 Other long term (current) drug therapy
CPT/HCPCS: 87798; 99283; Q0162

== ENCOUNTER 2021-08-10 13:58 | Emergency (ER) | payer BC ==
[~2021-08-10] VITALS: Ht 160 cm; Wt 79.5 kg
[~2021-08-10 13:58] MED LIST changes: +ONDA4TAB6 PO
[2021-08-10] MEDS ORDERED: NS 1,000 ML IV ONE (15:10)
[2021-08-10] MEDS ORDERED: METOCLOPRAMIDE INJ 10MG/2ML VIAL (J2765 PER 1) IV ONE (15:10)
[2021-08-10 15:58] LABS: BASO % 0.7 % (0.0-1.0); EOS % 0.5 % (0.0-3.0); HEMATOCRIT 47.4 % (36.0-47.0); HEMOGLOBIN 15.9 g/dl (12.0-15.5); LYMPH # 1.3 10^3/uL (1.5-5.0); LYMPH % 29.6 % (24.0-44.0); MEAN CORPUSCULAR HEMOGLOBIN 29.1 pg (27.0-33.0); MEAN CORPUSCULAR HGB CONC 33.5 g/dl (32.0-36.5); MEAN CORPUSCULAR VOLUME 86.7 fl (80.0-96.0); MONO # 0.7 10^3/uL (0.0-0.8); MONO % 14.8 % (2.0-8.0); NEUTROPHILS # 2.4 10^3/uL (1.5-8.5); NEUTROPHILS % 54.2 % (36.0-66.0); PLATELET COUNT, AUTOMATED 189 10^3/uL (150-450); RED BLOOD COUNT 5.47 10^6/uL (4.00-5.40); WHITE BLOOD COUNT 4.4 10^3/uL (4.0-10.0)
[2021-08-10 16:29] LABS: ALBUMIN 3.8 GM/DL (3.2-5.2); ALT/SGPT 53 U/L (12-78); BILIRUBIN,DIRECT 0.1 MG/DL (0.0-0.2); BILIRUBIN,TOTAL 0.4 MG/DL (0.2-1.0); BLOOD UREA NITROGEN 19 MG/DL (7-18); CALCIUM LEVEL 8.7 MG/DL (8.5-10.1); CARBON DIOXIDE LEVEL 23 MEQ/L (21-32); CHLORIDE LEVEL 106 MEQ/L (98-107); CREATININE FOR GFR 0.86 MG/DL (0.55-1.30); GLOMERULAR FILTRATION RATE > 60.0 (>58); GLUCOSE, FASTING 89 MG/DL (70-100); LIPASE 122 U/L (73-393); POTASSIUM SERUM 3.8 MEQ/L (3.5-5.1); SODIUM LEVEL 139 MEQ/L (136-145); TOTAL PROTEIN 7.4 GM/DL (6.4-8.2)
[2021-08-10] MEDS ORDERED: PROMETHAZINE INJ 25 MG/ML VIAL (J2550) IV ONE (17:35)
[2021-08-10] MEDS ORDERED: PROC10TA5 PO (20:12)
[2021-08-10] MEDS ORDERED: ONDA4TAB6 PO (20:12)
[2021-08-10 20:27] VITALS: BP 118/60
== END 2021-08-10 20:30 | disposition home or self-care (01) ==
LOC: M ED 13:58
DX: U07.1 COVID-19 (principal); R11.2 Nausea with vomiting, unspecified; R19.7 Diarrhea, unspecified; E78.5 Hyperlipidemia, unspecified; R51.9 Headache, unspecified; K21.9 Gastro-esophageal reflux disease without esophagitis; Z79.899 Other long term (current) drug therapy; Z88.5 Allergy status to narcotic agent
CPT/HCPCS: 74021; 80048; 80076; 83690; 85025; 87505; 96361; 96374; 96375; 99284; J2765

== ENCOUNTER 2022-02-03 15:23 | Emergency (ER) | payer BC ==
[~2022-02-03] VITALS: Ht 160 cm; Wt 75.5 kg
[~2022-02-03 15:23] MED LIST changes: +PROC10TA5 PO
[2022-02-03] MEDS ORDERED: PRIL20TA2 PO (16:04)
[2022-02-03] MEDS ORDERED: NITROGLYCERIN 0.4 MG SUBL TABLET SL PRN (16:05)
[2022-02-03] MEDS ORDERED: ASPIRIN 81 MG CHEW TABLET PO ONE (16:05)
[2022-02-03 16:12] VITALS: BP 121/74
[2022-02-03 16:41] LABS: BASO % 0.5 % (0.0-1.0); EOS # 0.1 10^3/uL (0.0-0.5); EOS % 1.1 % (0.0-3.0); HEMATOCRIT 43.8 % (36.0-47.0); HEMOGLOBIN 14.4 g/dl (12.0-15.5); LYMPH % 27.3 % (24.0-44.0); MEAN CORPUSCULAR HGB CONC 32.9 g/dl (32.0-36.5); MEAN CORPUSCULAR VOLUME 88.3 fl (80.0-96.0); MONO # 0.5 10^3/uL (0.0-0.8); NEUTROPHILS # 4.7 10^3/uL (1.5-8.5); NEUTROPHILS % 63.8 % (36.0-66.0); PLATELET COUNT, AUTOMATED 260 10^3/uL (150-450); RED BLOOD COUNT 4.96 10^6/uL (4.00-5.40); WHITE BLOOD COUNT 7.3 10^3/uL (4.0-10.0)
[2022-02-03 17:04] LABS: CK-MB VALUE MASS 2.2 NG/ML (<3.6); CPK CREATINE PHOSPHOKINASE 195 U/L (26-192); MB/CK RELATIVE INDEX 1.13 (< OR =4)
[2022-02-03 17:06] LABS: ALBUMIN 3.7 GM/DL (3.2-5.2); ALT/SGPT 39 U/L (12-78); BILIRUBIN,DIRECT < 0.1 MG/DL (0.0-0.2); BILIRUBIN,TOTAL 0.3 MG/DL (0.2-1.0); BLOOD UREA NITROGEN 16 MG/DL (7-18); CALCIUM LEVEL 9.3 MG/DL (8.5-10.1); CARBON DIOXIDE LEVEL 29 MEQ/L (21-32); CHLORIDE LEVEL 106 MEQ/L (98-107); CREATININE FOR GFR 0.91 MG/DL (0.55-1.30); FREE T4 0.95 NG/DL (0.76-1.46); GLOMERULAR FILTRATION RATE > 60.0 (>58); GLUCOSE, FASTING 98 MG/DL (70-100); LIPASE 207 U/L (73-393); POTASSIUM SERUM 4.2 MEQ/L (3.5-5.1); SODIUM LEVEL 139 MEQ/L (136-145); TOTAL PROTEIN 7.8 GM/DL (6.4-8.2)
[2022-02-03 17:15] VITALS: BP 105/64
[2022-02-03 18:24] LABS: CK-MB VALUE MASS 2.1 NG/ML (<3.6); MB/CK RELATIVE INDEX 1.72 (< OR =4)
== END 2022-02-03 20:12 | disposition home or self-care (01) ==
LOC: M ED 15:23
DX: R07.9 Chest pain, unspecified (principal); R20.2 Paresthesia of skin; J45.909 Unspecified asthma, uncomplicated; G47.30 Sleep apnea, unspecified; K21.9 Gastro-esophageal reflux disease without esophagitis; F41.9 Anxiety disorder, unspecified; F32.9 Major depressive disorder, single episode, unspecified; Z79.899 Other long term (current) drug therapy; Z88.5 Allergy status to narcotic agent

== ENCOUNTER 2022-12-19 03:50 | Emergency (ER) | payer BC ==
[~2022-12-19] VITALS: Ht 160 cm; Wt 79.3 kg
[~2022-12-19 03:50] MED LIST changes: +LIDO15SO PO; -LIDO2SOL17 PO; +PRIL20TA2 PO
[2022-12-19 03:52] VITALS: BP 147/93; TEMP 98.2; O2SAT 99
[2022-12-19] MEDS ORDERED: MINERAL OIL AU ONE (04:20)
== END 2022-12-19 06:14 | disposition home or self-care (01) ==
LOC: M ED 03:50
DX: T16.1XXA Foreign body in right ear, initial encounter (principal); J45.909 Unspecified asthma, uncomplicated; K21.9 Gastro-esophageal reflux disease without esophagitis; Z79.899 Other long term (current) drug therapy; Z88.5 Allergy status to narcotic agent

== ENCOUNTER 2023-04-14 16:51 | Emergency (ER) | payer BC, OTHER ==
[~2023-04-14] VITALS: Ht 160 cm; Wt 81.7 kg
[~2023-04-14 16:51] MED LIST changes: +DICY-61 PO; -DICY10CA13 PO
[2023-04-14 18:04] LABS: BASO # 0.1 10^3/uL (0.0-0.2); BASO % 0.7 % (0.0-1.0); EOS # 0.2 10^3/uL (0.0-0.5); EOS % 2.1 % (0.0-3.0); HEMATOCRIT 42.2 % (36.0-47.0); LYMPH # 2.1 10^3/uL (1.5-5.0); LYMPH % 27.8 % (24.0-44.0); MEAN CORPUSCULAR HEMOGLOBIN 29.6 pg (27.0-33.0); MEAN CORPUSCULAR HGB CONC 33.2 g/dl (32.0-36.5); MEAN CORPUSCULAR VOLUME 89.2 fl (80.0-96.0); MONO # 0.6 10^3/uL (0.0-0.8); MONO % 8.6 % (2.0-8.0); NEUTROPHILS # 4.5 10^3/uL (1.5-8.5); NEUTROPHILS % 60.7 % (36.0-66.0); PLATELET COUNT, AUTOMATED 228 10^3/uL (150-450); RED BLOOD COUNT 4.73 10^6/uL (4.00-5.40); WHITE BLOOD COUNT 7.5 10^3/uL (4.0-10.0)
[2023-04-14 18:29] LABS: LIPASE 42 U/L (12-53)
[2023-04-14 18:31] LABS: ALBUMIN 3.6 G/DL (3.2-5.2); ALKALINE PHOSPHATASE 91 U/L (46-116); ALT/SGPT 22 U/L (7.0-40); AST/SGOT 15 U/L (<34); BILIRUBIN,DIRECT < 0.1 MG/DL (<0.4); BILIRUBIN,TOTAL 0.2 MG/DL (0.3-1.2); BLOOD UREA NITROGEN 14 MG/DL (9-23); CALCIUM LEVEL 8.9 MG/DL (8.5-10.1); CARBON DIOXIDE LEVEL 27 MMOL/L (20-31); CHLORIDE LEVEL 105 MMOL/L (98-107); CREATININE FOR GFR 0.69 MG/DL (0.55-1.30); GLOMERULAR FILTRATION RATE > 60.0 (>58); GLUCOSE, FASTING 99 MG/DL (60-100); POTASSIUM SERUM 4.1 MMOL/L (3.5-5.1); SODIUM LEVEL 140 MMOL/L (136-145); TOTAL PROTEIN 6.5 G/DL (5.7-8.2)
[2023-04-14 20:51] LABS: URINE PREG TEST NEGATIVE (NEGATIVE)
[2023-04-14] MEDS ORDERED: ISOVUE-370 76% 100ML VIAL As Ordered ONE (21:39)
[2023-04-14] MEDS ORDERED: KETOROLAC 30 MG/ML 1ML VIAL IV ONE (21:40)
[2023-04-14] MEDS ORDERED: MIRA3350 PO (23:52)
[2023-04-15 00:04] VITALS: BP 111/74; TEMP 97.6; O2SAT 98
== END 2023-04-15 00:11 | disposition home or self-care (01) ==
LOC: M ED 16:51
DX: R10.9 Unspecified abdominal pain (principal); K59.00 Constipation, unspecified; K21.9 Gastro-esophageal reflux disease without esophagitis; J45.909 Unspecified asthma, uncomplicated; Z87.42 Personal history of other diseases of the female genital tract; Z88.5 Allergy status to narcotic agent; Z79.52 Long term (current) use of systemic steroids; Z79.83 Long term (current) use of bisphosphonates; Z79.899 Other long term (current) drug therapy
CPT/HCPCS: 74177; 80048; 80076; 81001; 83690; 84703; 85025; 96374; 99284; J1885; Q9967

== ENCOUNTER → 2023-05-25 | Outpatient (CLI) | payer BC, OTHER ==
[~2023-05-25] MED LIST changes: +MIRA3350 PO
== END ==
LOC: M WHC 07:49
PROVIDERS: ATTEND Physician Assistant
DX: Z12.31 Encounter for screening mammogram for malignant neoplasm of breast (principal); R10.84 Generalized abdominal pain; K76.0 Fatty (change of) liver, not elsewhere classified

== ENCOUNTER → 2023-05-25 | Outpatient (CLI) | payer OTHER | LOC: M PLAIMG 09:19 | PROVIDERS: ATTEND Physician Assistant | DX: J45.20 Mild intermittent asthma, uncomplicated (principal) ==

== ENCOUNTER → 2023-11-11 | Outpatient (CLI) | payer OTHER ==
[~2023-11-11] MED LIST changes: -LIDO15SO PO; +LIDO15SO8 PO; -ROSU10TA6; +ROSU10TA61
== END ==
LOC: M RAD 14:11
PROVIDERS: ATTEND Physician Assistant
DX: R07.9 Chest pain, unspecified (principal)

== ENCOUNTER 2024-06-12 10:17 | Emergency (ER) | payer OTHER ==
[~2024-06-12] VITALS: Ht 160 cm; Wt 63.3 kg
[~2024-06-12 10:17] MED LIST changes: +ONDA-282 PO; -ONDA4TAB6 PO
[2024-06-12 10:20] VITALS: BP 132/80; TEMP 99.3
[2024-06-12] MEDS ORDERED: ROSU5TAB49 (10:28)
[2024-06-12] MEDS ORDERED: PANT40TA29 (10:28)
[2024-06-12] MEDS ORDERED: MUCI1TAB16 PO (10:28)
[2024-06-12] MEDS: IPRATROPIUM 0.5MG/ALBUTEROL 2.5MG INH SOL UD 3ML (DUONEB) NEB ONE (11:44)
[2024-06-12] MEDS ORDERED: PSEU30TA87 PO (12:20)
[2024-06-12] MEDS ORDERED: MUCI600T31 PO (12:20)
[2024-06-12] MEDS ORDERED: BENZ200C70 PO (12:20)
[2024-06-12] MEDS ORDERED: IPRA0.00 INH (12:20)
[2024-06-12] MEDS ORDERED: NEBU1EAC78 MC (12:20)
[2024-06-12 12:27] VITALS: O2SAT 98
== END 2024-06-12 12:27 | disposition home or self-care (01) ==
LOC: M ED 10:17
DX: J20.5 Acute bronchitis due to respiratory syncytial virus (principal); J45.909 Unspecified asthma, uncomplicated; K21.9 Gastro-esophageal reflux disease without esophagitis; E78.5 Hyperlipidemia, unspecified; Z79.899 Other long term (current) drug therapy; Z88.5 Allergy status to narcotic agent

== ENCOUNTER 2025-05-14 12:14 | Observation (INO) | payer OTHER ==
[~2025-05-14] VITALS: Ht 160 cm; Wt 85.8 kg
[~2025-05-14 12:14] MED LIST changes: +BENZ200C70 PO; +FAMO1TAB11 PO; +IPRA0.00 INH; +MUCI1TAB16 PO; +MUCI600T31 PO; +NEBU1EAC78 MC; +PANT40TA29 PO; +PSEU30TA87 PO; -ROSU10TA61; +ROSU10TA90; +ROSU5TAB49
[2025-05-14 13:19] LABS: BASO # 0.0 10^3/uL (0.0-0.2); BASO % 0.4 % (0.0-1.0); EOS # 0.0 10^3/uL (0.0-0.5); EOS % 0.2 % (0.0-3.0); LYMPH # 2.1 10^3/uL (1.5-5.0); LYMPH % 22.8 % (24.0-44.0); MONO # 0.7 10^3/uL (0.0-0.8); MONO % 8.1 % (2.0-8.0); NEUTROPHILS # 6.3 10^3/uL (1.5-8.5); NEUTROPHILS % 68.3 % (36.0-66.0); PLATELET COUNT, AUTOMATED 297 10^3/uL (150-450)
[2025-05-14 13:42] LABS: KETONE, URINE AUTO RFX 1+ mg/dL (NEGATIVE); LEUKOCYTE ESTERASE UR AUTO RFX NEGATIVE (NEGATIVE); MUCUS, URINE RFX LARGE (NEGATIVE); NITRITE, URINE AUTO RFX NEGATIVE (NEGATIVE); RBC, URINE AUTO RFX 3 /HPF (0-3); SQUAM EPITHELIAL CELL UR AURFX 2 /HPF (0-6); WBC, URINE AUTO RFX 7 /HPF (0-3)
[2025-05-14 13:47] LABS: ALT/SGPT 57 U/L (7.0-40); AST/SGOT 32 U/L (<34); CALCIUM LEVEL 9.6 MG/DL (8.5-10.1); CARBON DIOXIDE LEVEL 25 MMOL/L (20-31); CHLORIDE LEVEL 103 MMOL/L (98-107); CREATININE FOR GFR 0.66 MG/DL (0.55-1.30); GLOMERULAR FILTRATION RATE > 90.0 (>58); POTASSIUM SERUM 3.8 MMOL/L (3.5-5.1); SODIUM LEVEL 142 MMOL/L (136-145)
[2025-05-14] MEDS: ONDANSETRON 4MG/2ML VIAL IV ONE (16:52)
[2025-05-14] MEDS: KETOROLAC 30 MG/ML 1 ML VIAL IV ONE (16:53)
[2025-05-14] MEDS: NS (Normal Saline) 0.9% 1,000 ML IV ONE ×2 (16:54→22:26)
[2025-05-14 17:22] LABS: MAGNESIUM LEVEL 2.4 MG/DL (1.8-2.4)
[2025-05-14 17:24] LABS: CPK CREATINE PHOSPHOKINASE 133 U/L (34-145)
[2025-05-14] MEDS: PANTOPRAZOLE 40MG VIAL IV ONE (19:29)
[2025-05-14] MEDS ORDERED: ISOVUE-370 76% 100 ML VIAL As Ordered ONE (20:50)
[2025-05-14] MEDS ORDERED: GLUCAGON INJ 1 MG VIAL SC PRN (21:50)
[2025-05-14] MEDS ORDERED: IPRATROPIUM 0.5 MG/ALBUTEROL 2.5 MG INH SOL UD 3 ML NEB PRN (21:50)
[2025-05-14] MEDS ORDERED: GLUCOSE 4 GM CHEW PO PRN (21:50)
[2025-05-14] MEDS ORDERED: DEXTROSE 50% 50 ML SYRINGE IV PRN (21:50)
[2025-05-14] MEDS ORDERED: ONDANSETRON 4MG/2ML VIAL IV PRN (21:50)
[2025-05-14] MEDS: INSULIN LISPRO (NovoLOG) PER UNIT SC SCH (22:26)
[2025-05-14] MEDS: D5W/0.45% SODIUM CHLORIDE 1,000 ML IV SCH (23:03)
[2025-05-15 02:00] VITALS: BP 126/70; TEMP 98.6; O2SAT 96
[2025-05-15] MEDS: ACETAMINOPHEN *IV* 1,000 MG in IV 1 EA IV ONE (02:59)
[2025-05-15 04:18] VITALS: BP 115/57; TEMP 98.8; O2SAT 100
[2025-05-15 06:25] LABS: PLATELET COUNT, AUTOMATED 220 10^3/uL (150-450)
[2025-05-15 06:50] LABS: CALCIUM LEVEL 7.7 MG/DL (8.5-10.1); CARBON DIOXIDE LEVEL 26 MMOL/L (20-31); CHLORIDE LEVEL 107 MMOL/L (98-107); CREATININE FOR GFR 0.61 MG/DL (0.55-1.30); GLOMERULAR FILTRATION RATE > 90.0 (>58); MAGNESIUM LEVEL 2.2 MG/DL (1.8-2.4); POTASSIUM SERUM 3.5 MMOL/L (3.5-5.1); SODIUM LEVEL 143 MMOL/L (136-145)
[2025-05-15] MEDS: INSULIN LISPRO (NovoLOG) PER UNIT SC SCH (07:30)
[2025-05-15] MEDS: ENOXAPARIN 40 MG/0.4 ML SYRINGE (J1650 PER 10MG) SC SCH (08:36)
[2025-05-15] MEDS: PANTOPRAZOLE 40MG VIAL IV SCH (08:36)
[2025-05-15] MEDS ORDERED: HOME MED LIST COMPLETE! XX SCH (11:00)
[2025-05-15 12:00] VITALS: BP 121/70; TEMP 98.8; O2SAT 95
[2025-05-15] MEDS ORDERED: ONDA-282 PO (13:21)
== END 2025-05-15 15:38 | disposition home or self-care (01) ==
LOC: M ED 12:14 → M ED INP 12:15 → M MSPAV 05-15 02:04
PROVIDERS: ADMIT Internal Medicine; ATTEND Student in an Organized Health Care Education/Training Program
DX: R11.2 Nausea with vomiting, unspecified (principal); K21.9 Gastro-esophageal reflux disease without esophagitis; J45.20 Mild intermittent asthma, uncomplicated; E78.5 Hyperlipidemia, unspecified; R73.03 Prediabetes; E66.9 Obesity, unspecified; Z79.899 Other long term (current) drug therapy
CPT/HCPCS: 36415; 74177; 80048; 80076; 81001; 82550; 83690; 83735; 85025; 85027; 87486; 87581; 87633; 87798; 96361; 96372; 96374; 96375; 96376; 99285; J0131; J1650; J1885; J2405; J2470; J2765; Q9967